=== PATIENT | female | born 1960 | race Caucasian/White ===

== ENCOUNTER 2019-09-13 15:38 | Outpatient (CLI) | payer MEDICARE, OTHER, SELFPAY ==
--- NOTE | ~2019-09-13 | XR_ITS ---
XR chest 2V 09/13/2019 16:14 Indication: Shortness of breath, cough and chest pain Procedure: 2 view chest Comparison: 10/20/2015 Findings: Heart size is normal. There is left basilar atelectasis/scarring. There are scattered calci fied granulomata. There is a bleb in the left perihilar region. No focal pneumonia, edema, pleural ef fusion or pneumothorax. Impression: 1: Left basilar atelectasis/scarring. Reviewed, dictated and finalized at location A. GE MANAGEMENT EXPERT Impression: 1: Left basilar atelectasis/scarring.
[2019-09-13 16:15] LABS: Influenza Control Valid (Valid)
[2019-09-13 16:40] LABS: Anion Gap 12.1 mmol/L (7-16); Blood Urea Nitrogen 11 mg/dL (7-18); Calcium 8.5 mg/dL (8.5-10.1); Carbon Dioxide 29 mmol/L (21-32); Chloride 103 mmol/L (98-108); Estimated Glomerular Filt Rate > 60; Glucose 98 mg/dL (70-99); Osmolality Calculated 289 mOsm/kg (285-295); Potassium 4.1 mmol/L (3.5-5.1); Sodium 140 mmol/L (136-145)
== END 2019-09-13 15:39 | disposition home or self-care (01) ==
LOC: CHSLAB 15:44
PROVIDERS: PCP Family Medicine; Visit Provider Family Medicine
DX: R05 Cough (principal)
CPT/HCPCS: 36415; 71046; 80048; 87804

== ENCOUNTER 2020-01-28 07:07 | Emergency (ER) | payer MEDICARE, OTHER, SELFPAY ==
[2020-01-28 07:15] VITALS: BP 162/87; PULSE 84; RESP 20; TEMP 36.7; O2SAT 98
--- NOTE | 2020-01-28 07:43 | ED.SKABFB ---
HPI - Skin/Abscess/Foreign Bdy General Chief complaint: Skin/Abscess/Foreign Body Stated complaint: fish hook stuck in L leg Time Seen by Provider: 01/28/20 07:43 Source: patient Mode of arrival: ambulatory Limitations: no limitations History of Present Illness HPI narrative: Patient is a 59-year-old female who was fishing today which hand got a hook imbedded in her left leg. Patient has no other complaints. complaint: foreign body Onset (ago): minute(s) Tetanus up to date: no Location: LLE Severity: mild Quality: foreign body sensation Related Data Allergies Allergy/AdvReac Type Severity Reaction Status Date / Time shellfish derived Allergy Unknown Verified 01/28/20 07:25 Review of Systems Review of Systems: All systems reviewed & are unremarkable except as noted in HPI and below PMFSH Family History Family History Mother Sepsis Social History Social History Smoking status: Never smoker Alcohol intake: never Substance use: never Exam Const: General: no acute distress and alert Nutritional Appearance: well nourished Orientation/consciousness: patient oriented x3 Skin: Other: A large fish hook in left lower extremity Neuro: General: patient oriented x3, moves all extremities and no focal motor deficits Extrem: General: normal to inspection Psych: Mental Status: mental status grossly normal Course Vital Signs Vital signs: Vital Signs Temperature 36.7 C 01/28/20 07:15 Pulse Rate 84 01/28/20 07:15 Respiratory Rate 01/28/20 07:15 Blood Pressure 162/87 H 01/28/20 07:15 Pulse Oximetry 98 01/28/20 07:15 Temperature 36.7 C 01/28/20 07:15 Pulse Rate 84 01/28/20 07:15 Respiratory Rate 01/28/20 07:15 Blood Pressure 162/87 H 01/28/20 07:15 Pulse Oximetry 98 01/28/20 07:15 Procedures Foreign Body Removal Foreign Body #1: Foreign Body Removal Date: 01/28/20 Foreign Body Removal Time: 07:38 Time Out Performed: yes Site: left and lower extremity Description of foreign body: fish hook Sedation/Analgesia: none ( 8 cc of lidocaine with epinephrine) Technique: manual removal Complications: none Post-procedure exam: awake, alert Neurovascular: normal distal pulse, distal light touch sensation intact, distal motor function normal and no signs of compartment syndrome Foreign Body Removal Narrative: area cleans with wound cleaning spray, lido with epi given, fish hook cut, pushed through skin, FB removed. discussed signs of infection. Critical Care Time Critical Care Time Critical Care Time: No Discharge Plan Discharge Clinical Impression: Foreign body (FB) in soft tissue Patient Disposition: Home, Self-Care Condition: Stable Instructions: Antibiotic Form, Soft Tissue Foreign Body (ED) Prescriptions: New cephalexin 500 mg capsule 500 mg PO Q8H Qty: 30 RF: 0 Follow-up/Referrals: Payam Mello MD [Primary Care Provider] - Time of Disposition: 07:46
[2020-01-28] MEDS: LIDO 1%/EPINEPHRINE 1:100,000 20 ML VIAL (07:45)
[2020-01-28] MEDS: NEOMYCIN/POLYMYXIN/BACITRACIN OINTMENT PACKET 1 PACKET (07:50)
[2020-01-28] MEDS: TETANUS,DIPHTHERIA,AC PERTUSSIS ADULT 0.5 ML (ADACEL) IM (07:53)
== END 2020-01-28 08:00 | disposition home or self-care (01) ==
PROVIDERS: Emergency Provider Emergency Medicine; PCP Family Medicine
DX: S81.842A Puncture wound with foreign body, left lower leg, initial encounter (principal); X58.XXXA Exposure to other specified factors, initial encounter
CPT/HCPCS: 90471; 90715; 99283

== ENCOUNTER 2020-04-25 06:45 | Emergency (ER) | payer MEDICARE, OTHER, SELFPAY ==
--- NOTE | ~2020-04-25 | CT_ITS ---
EXAMINATION: CT abdomen pelvis wo con DATE: 04/25/2020 08:09 INDICATION: Left flank pain for one day. Nausea. Urinary retention. TECHNIQUE: Computed tomography (CT) of the abdomen and pelvis was performed without intravenous contr ast. Automated exposure control and iterative reconstruction technique were employed. Exam dose: 113 5.09 mGy-cm total exam DLP. COMPARISON: 01/04/2015 CT abdomen FINDINGS: No infiltrate or consolidation is noted in the lower lung zones. There is mild discoid atel ectasis or scarring in the lingula. Normal heart size. No pericardial or pleural effusion. There is hepatic steatosis. No hepatic, splenic, pancreatic, adrenal or renal space-occupying mass le sandra is evident on this limited noncontrast examination. No bile duct or pancreatic duct dilatation. The gallbladder is unremarkable. There are calcified splenic granulomas. There is a chronic small sca r in the upper lateral aspect of the right kidney. No right urinary tract calculus or right-sided hyd roureteronephrosis. There is an approximately 3 mm nonobstructing lower pole left renal calculus. There is mild left hydr oureteronephrosis and mild left perinephric and periureteral stranding but no apparent urinary tract calculus. Differential diagnosis includes left pyelonephritis, recently passed stone or obstructing m ass of the left urinary tract. Consider further evaluation with IV contrast material CT examination. There is atherosclerotic calcification of the abdominal aorta but no aneurysm. No intraperitoneal or retroperitoneal or pelvic mass lesion or adenopathy or ascites. The uterus and adnexal areas are unre markable. There is limited evaluation of the urinary bladder due to evacuation of the bladder and abs ence of any contrast material. Diverticulosis of the sigmoid and descending colon; no CT evidence of diverticulitis. Normal appendix . No bowel obstruction, bowel wall thickening, pneumatosis or intraperitoneal free air. Small fat-containing umbilical hernia. Status post anterior spinal fusion at L5-S1. No suspicious osteolytic or osteoblastic lesions are noted. IMPRESSION: Mild left hydroureteronephrosis and mild left perinephric and periureteral stranding, wi thout identifiable obstructing stone; differential diagnosis includes recently passed stone, urinary tract infection or obstructing neoplasm. Consider CT abdomen pelvis with IV contrast material. 3 mm nonobstructing lower pole left renal calculus Hepatic steatosis Chronic small upper pole right renal scar Diverticulosis of the colon; no CT evidence of diverticulitis Reviewed, dictated and finalized at [facility]. Reviewed, dictated and finalized at location B. IMPRESSION: Mild left hydroureteronephrosis and mild left perinephric and melissa ureteral stranding, without identifiable obstructing stone; differential diagno sis includes recently passed stone, urinary tract infection or obstructing neop lasm. Consider CT abdomen pelvis with IV contrast material. 3 mm nonobstructing lower pole left renal calculus Hepatic steatosis Chronic small upper pole right renal scar Diverticulosis of the colon; no CT evidence of diverticulitis
[2020-04-25 06:45] VITALS: BP 151/73; PULSE 120; RESP 18; TEMP 37.4; O2SAT 98
[2020-04-25] MEDS: KETOROLAC 30 MG/ML VIAL (*BKC) IV PUSH (07:04)
[2020-04-25 07:19] LABS: Hematocrit 44.8 % (35.0-49.0); Hemoglobin 14.8 g/dL (12.0-15.0); Mean Corpuscular Hemoglobin 29.1 pg (27.0-31.0); Mean Platelet Volume 9.5 fl (9.2-11.8); Platelet Count Result 351 K/mm3 (150-420); Red Blood Count 5.09 M/mm3 (4.20-5.40); Red Cell Distribution Width 12.4 % (11.6-14.4); White Blood Count 16.4 K/mm3 (4.8-10.8)
[2020-04-25 07:20] LABS: Add Urine Microscopic? YES; Appearance Urine Clear (Clear); Bilirubin Urine 1+ (Negative); Blood Urine 3+ (Negative); Color Urine Yellow (Yellow); Glucose Urine UA Negative (Negative); Ketones Urine Trace (Negative); Leukocyte Esterase Ur Negative LEU/UL (Negative); Nitrate Urine Negative (Negative); Protein Urine 1+ (Negative); Specific Grav Ur >= 1.030 (1.010-1.020); Urobilinogen Urine 0.2 mg/dL (0.2-1.0)
[2020-04-25 07:29] LABS: Bacteria Urine 3+ /hpf; Mucus Urine Heavy /lpf; Squamous Epithelial Cell Urine Moderate /hpf (Few)
[2020-04-25 07:36] LABS: Alanine Aminotransferase 59 U/L (14-59); Albumin Level 3.8 g/dL (3.4-5.0); Alkaline Phosphatase 152 U/L (46-116); Anion Gap 11 mmol/L (8-16); Aspartate Amino Transferase 31 U/L (15-37); Bilirubin,Total 0.4 mg/dL (0.00-1.00); Blood Urea Nitrogen 11 mg/dL (7-18); Calcium 9.3 mg/dL (8.5-10.1); Carbon Dioxide 25 mmol/L (21-32); Chloride 102 mmol/L (98-108); Estimated Glomerular Filt Rate 47; Glucose 146 mg/dL (70-99); Osmolality Calculated 288 mOsm/kg (285-295); Potassium 3.9 mmol/L (3.5-5.1); Sodium 138 mmol/L (136-145); Total Protein 8.6 g/dL (6.4-8.2)
[2020-04-25] MEDS: MORPHINE SULFATE (*CRX) 4 MG/ML INJ IV PUSH (07:45)
--- NOTE | 2020-04-25 07:52 | ED.FEMALEGU ---
HPI - Female Genitourinary General Chief complaint: Urogenital-Female Stated complaint: possible female infection Source: patient Mode of arrival: ambulatory Limitations: no limitations History of Present Illness HPI Narrative: PT is a 59 year old female who presents with left sided flank pain. It started last night and this am was much worse. She has had kidney stones and UTI's in the past. She denies fevers or chills, but is in a lot of pain MD elicited complaint: dysuria, UTI , back pain and flank pain Pertinent past history: recurrent UTIs Onset (ago): hour(s) Location of symptoms: LLQ Severity: mild Female Urogenital Radiation: LLQ and L Flank Quality of pain: sharp Consistency: constant Urinary symptoms: Dysuria Exacerbating factors: none Relieving factors: urination Associated symptoms: abdominal pain, nausea and back pain Patient : No Related Data Home Medications Medication Instructions Recorded Confirmed amitriptyline 10 mg PO PRN PRN 04/25/20 04/25/20 Allergies Allergy/AdvReac Type Severity Reaction Status Date / Time shellfish derived Allergy Unknown Verified 01/28/20 07:25 Review of Systems Review of Systems: All systems reviewed & are unremarkable except as noted in HPI and below Gastrointestinal: Gastrointestinal: Reports abdominal pain and Reports nausea Genitourinary: Genitourinary: Reports nocturia, Reports dysuria and Reports flank pain PMFSH Past Medical History Medical History (Updated 04/25/20 @ 08:59 by Jonelle Fortune MD) HTN (hypertension) Surgical History Surgical History (Updated 04/25/20 @ 08:15 by Jonelle Fortune MD) H/O knee surgery History of back surgery Social History Social History Smoking status: Never smoker Alcohol intake: never Substance use: never Exam Const: General: healthy appearing, no acute distress (pt is having moderate discomfort) and alert Orientation/consciousness: patient oriented x3 HENMT: Head: normal to inspection Eyes: Conjunctivae: conjunctivae normal Pupils: Equal, round and reactive pupils present Neck: Neck: normal visual inspection Chest: Chest palpation & inspection: normal inspection of the chest Resp: Effort & Inspection: normal respiratory effort Auscultation: clear to auscultation bilaterally Cardio: Rate: regular rate Rhythm: regular rhythm GI: Inspection: distended GI Palp: Yes Soft to palpation Percussion: Yes normal to percussion Urinary Catheter: Urinary Catheter: patent and draining Back/Spine/Pelvis: Back: no CVA tenderness Skin: General skin exam: normal color Neuro: General: patient oriented x3 and moves all extremities Gait exam (Neuro): Normal gait present Extrem: General: normal to inspection Psych: Mental Status: mental status grossly normal Affect: normal affect Thought content: Yes Normal thought content present Judgement: Good judgement present (Psych) Course Vital Signs Vital signs: Vital Signs Temperature 37.4 C 04/25/20 06:45 Pulse Rate 120 H 04/25/20 06:45 Respiratory Rate 18 04/25/20 06:45 Blood Pressure 151/73 H 04/25/20 06:45 Pulse Oximetry 98 04/25/20 06:45 Temperature 37.4 C 04/25/20 06:45 Pulse Rate 115 H 04/25/20 11:55 Respiratory Rate 14 04/25/20 11:55 Blood Pressure 151/73 H 04/25/20 06:45 Pulse Oximetry 98 04/25/20 11:55 MDM - Female Genitourinary Differential Diagnosis Differential diagnosis: Likely urinary tract infection and other (stone) Lab Data Result diagrams: 04/25/20 07:14 04/25/20 07:14 Labs: Lab Results 04/25/20 04/25/20 04/25/20 Range/Units 07:14 07:14 07:14 WBC 16.4 H (4.8-10.8) K/mm3 RBC 5.09 (4.20-5.40) M/mm3 Hgb 14.8 (12.0-15.0) g/dL Hct 44.8 (35.0-49.0) % MCV 88.0 (78.0-102.0) fL MCH 29.1 (27.0-31.0) pg MCHC 33.0 (32.0-36.0) g/dL RDW 12.4 (11.6-14.4)
--- NOTE | 2020-04-25 08:36 | PC.NURSE ---
pt voided in commode, noted small stone within urine. shown to erp Dr delgadillo.
--- NOTE | 2020-04-25 08:37 | PC.NURSE ---
pt resting per cot, continues with pressure to pelvic region and left flank pain
--- NOTE | 2020-04-25 09:48 | PC.NURSE ---
pt contacted sign. other for transport home. awaiting arrival. pt resting per cot
--- NOTE | 2020-04-25 09:58 | PC.NURSE ---
lights out for comfort. pt resting per cot.
--- NOTE | 2020-04-25 10:39 | PC.NURSE ---
report to ayana zarate
--- NOTE | 2020-04-25 10:40 | PC.NURSE ---
pt resting eyes closed.
[2020-04-25] MEDS: HYDROcodone/acetaminophen (*CRX) 5-325 MG TABLET 2 TAB PO (11:45)
[2020-04-25 11:55] VITALS: PULSE 115; RESP 14; O2SAT 98
== END 2020-04-25 11:55 | disposition home or self-care (01) ==
PROVIDERS: Emergency Medicine; Emergency Provider Emergency Medicine; PCP Family Medicine
DX: N20.0 Calculus of kidney (principal); I10 Essential (primary) hypertension
CPT/HCPCS: 36415; 74176; 80053; 81001; 85027; 96374; 96375; 99283; 99284; A9270; J1885; J2270

== ENCOUNTER 2020-08-03 12:37 | Inpatient (IN) | payer MEDICARE, OTHER, SELFPAY ==
[2020-08-03] VITALS (15 sets, daily range): BP systolic 90–168; BP diastolic 59–111; PULSE 90–106; RESP 18–20; TEMP 36.4–37.6; O2SAT 93–99; BMI 36.5
--- NOTE | ~2020-08-03 | CT_ITS ---
EXAMINATION: CT abdomen pelvis wo con DATE: 08/03/2020 13:36 INDICATION: Epigastric abdominal pain, nausea and vomiting for 3 days TECHNIQUE: Computed tomography (CT) of the abdomen and pelvis was performed without intravenous contr ast. Automated exposure control and iterative reconstruction technique were employed. Exam dose: 120 3.12 mGy-cm total exam DLP. COMPARISON: 04/25/2020 CT abdomen pelvis FINDINGS: There are mild groundglass infiltrates and/atelectasis in the lower lung zones, primarily i nvolving the lower lobes and lingula. No pericardial or pleural effusion. Diffuse hepatic steatosis. No hepatic space-occupying mass lesion. The gallbladder appears unremarkab le. No bile duct or pancreatic duct dilatation. No pancreatic mass lesion or calcification. There are calcified splenic granulomas. No splenomegaly or splenic mass lesion. Normal morphology of the adrenal glands. There is an approximately 3 mm nonobstructing lower pole left renal calculus. No other urinary tract calculus or hydroureteronephrosis is evident. The uterus, adnexal areas and urinary bladder are unremarkable. Normal caliber of the abdominal aorta. No intraperitoneal or retroperitoneal or pelvic mass lesion or adenopathy or ascites. The uterus and adnexal areas are unremarkable. There are numerous diverticula of the left colon and to a minimal extent right colon. No CT evidence of diverticulitis. Normal appendix. No bowel obstruction, bowel wall thickening, pneumatosis or intraperitoneal free air is detected. Atherosclerotic calcification of the abdominal aorta but no aneurysm. No intraperitoneal or retroperi toneal or pelvic mass lesion or adenopathy or ascites. Small fat-containing umbilical hernia. Status post anterior and interbody spinal fusion at L5-S1. No suspicious osteolytic or osteoblastic lesions are noted. IMPRESSION: 3 mm lower pole nonobstructing left renal calculus Hepatic steatosis Diverticulosis of the colon; no CT evidence of diverticulitis Reviewed, dictated and finalized at [facility]. Reviewed, dictated and finalized at location B. RAL ACCOUNTANT
--- NOTE | ~2020-08-03 | CT_ITS ---
EXAMINATION: CT abdomen pelvis w con DATE: 08/04/2020 15:22 INDICATION: Epigastric abdominal pain. TECHNIQUE: Computed tomography (CT) of the abdomen and pelvis was performed with 100 mL Omnipaque 350 intravenous contrast. Automated exposure control and iterative reconstruction technique were employe d. The dose-length product was 1092.42 mGy-cm. COMPARISON: CT abdomen and pelvis 08/03/2020 FINDINGS: The visualized portions of the lung bases demonstrate mild atelectasis. No pleural effusion . The heart size is normal. No pericardial effusion. The liver and gallbladder are normal. Calcificat ions in the spleen are consistent with old granulomatous disease. The pancreas and adrenal glands are normal. There is a small area of volume loss of right kidney. There is a 3 mm stone in left kidney. There is diverticulosis of the colon without evidence of diverticulitis. There are no dilated loops o f bowel. The appendix is normal. There is an infraumbilical ventral hernia containing fat. There are no pathologically enlarged lymph nodes. There is no free intraperitoneal fluid. There is mild thoraco lumbar spondylosis. There are changes of anterior fusion procedure at L5-S1. IMPRESSION: 1. Infraumbilical ventral hernia containing fat. Reviewed, dictated and finalized at location A. ST MANAGER
--- NOTE | ~2020-08-03 | US_ITS ---
US abdomen limited INDICATION: Abdominal pain PROCEDURE: Realtime right upper abdominal ultrasound. COMPARISON: No prior studies for comparison. FINDINGS: The pancreas is normal without focal mass or pancreatic ductal dilation. Liver echotexture is increased, consistent with fatty infiltration. There is normal directional flow in the portal ve in. The gallbladder is normal without stones, gallbladder wall thickening or pericholecystic fluid. Comm on bile duct measures 5 mm. No sonographic Ward's sign. IMPRESSION: 1: Fatty infiltration of the liver. Reviewed, dictated and finalized at location A. N OILSEED OR PASTURE GROWER
[2020-08-03] MEDS: ONDANSETRON INJ 4 MG/2 ML VIAL IV PUSH ×2 (12:56→23:29)
[2020-08-03] MEDS: HYDROmorphone HCL INJ (*CRX) 2 MG/ML VIAL 0.5 MG IV PUSH (12:56)
[2020-08-03] MEDS: SODIUM CHLORIDE 0.9% IV 1,000 ML 999 ML IV CONT (12:56)
--- NOTE | 2020-08-03 12:56 | ECG_ITS ---
Measurements Intervals [place] Rate: 82 P: 64 CO: 162 QRS: 74 QRSD: 100 T: 73 QT: 378 QTc: 442 Interpretive Statements SINUS RHYTHM EARLY PRECORDIAL R/S TRANSITION BORDERLINE ECG Electronically Signed On 08-03-2020 13:57:37 PIGMENT MIXER by Malachi Hidalgo D.O.
[2020-08-03 13:28] LABS: Basophils Absolute Auto 0.02 K/mm3 (0.00-0.10); Basophils Percent Auto 0.2 % (0.0-1.0); Hematocrit 42.7 % (35.0-49.0); Hemoglobin 14.4 g/dL (12.0-15.0); Immature Granulocyte Absolute 0.09 K/mm3 (0.00-0.00); Immature Granulocyte Percent A 0.9 % (0.0-0.0); Lymphocytes Percent Auto 7.9 % (18.0-42.0); Mean Corpuscular HGB Conc 33.7 g/dL (32.0-36.0); Mean Corpuscular Hemoglobin 28.9 pg (27.0-31.0); Mean Corpuscular Volume 85.6 fL (78.0-102.0); Mean Platelet Volume 9.4 fl (9.2-11.8); Monocytes Absolute Auto 0.31 K/mm3 (0.10-0.90); Monocytes Percent Auto 3.1 % (2.0-11.0); Neutrophils Absolute Auto 8.9 K/mm3 (1.7-7.2); Neutrophils Percent Auto 87.9 % (50.0-70.0); Platelet Count Result 337 K/mm3 (150-420); Red Blood Count 4.99 M/mm3 (4.20-5.40); Red Cell Distribution Width 12.5 % (11.6-14.4); White Blood Count 10.1 K/mm3 (4.8-10.8)
[2020-08-03] MEDS: KETOROLAC 30 MG/ML VIAL (*BKC) IV PUSH (13:49)
[2020-08-03 13:56] LABS: Alanine Aminotransferase 54 U/L (14-59); Alkaline Phosphatase 138 U/L (46-116); Anion Gap 10 mmol/L (8-16); Aspartate Amino Transferase 23 U/L (15-37); Bilirubin,Total 0.5 mg/dL (0.00-1.00); Blood Urea Nitrogen 14 mg/dL (7-18); Calcium 9.4 mg/dL (8.5-10.1); Carbon Dioxide 27 mmol/L (21-32); Chloride 101 mmol/L (98-108); Estimated CRCL calculation 57 ml/min; Estimated Glomerular Filt Rate > 60; Glucose 153 mg/dL (70-99); Lipase 57 U/L (73-393); Osmolality Calculated 289 mOsm/kg (285-295); Potassium 3.5 mmol/L (3.5-5.1); Sodium 138 mmol/L (136-145); Total Protein 8.7 g/dL (6.4-8.2); Troponin I 7.2 ng/L (0.00-60.4)
--- NOTE | 2020-08-03 14:21 | ED.NAVMDI ---
HPI - Nausea/Vomiting/Diarrhea General Chief complaint: Nausea/Vomiting/Diarrhea Stated complaint: vomiting for several days Source: patient Mode of arrival: ambulatory History of Present Illness HPI Narrative: This is a 60-year-old female with a history of kidney stones presents with abdominal pain and left flank pain, started earlier today with nausea and vomiting with no dysuria no hematuria currently no fever chills. The patient has a history of kidney stones was diagnosed and treated back in March 2020. Currently there is no chest pain no shortness of breath. MD elicited complaint: nausea, vomiting, abdominal pain and flank pain Onset (ago): hour(s) Description of vomiting: watery Associated nausea: Yes Associated abdominal pain: Yes Location of pain: L flank Severity: severe Pain scale (0-10): 8 Quality: aching and dull Related Data Home Medications Medication Instructions Recorded Confirmed amitriptyline 20 mg PO HS 04/25/20 08/03/20 Allergies Allergy/AdvReac Type Severity Reaction Status Date / Time shellfish derived Allergy Unknown Verified 01/28/20 07:25 Review of Systems Review of Systems: All systems reviewed & are unremarkable except as noted in HPI and below PMFSH Past Medical History Medical History (Updated 08/03/20 @ 14:33 by Sandro Layne MD) HTN (hypertension) Kidney stone Surgical History Surgical History H/O knee surgery History of back surgery Family History Family History Mother Sepsis Social History Social History Smoking status: Never smoker Alcohol intake: never Substance use: never Exam Const: General: no acute distress and alert Orientation/consciousness: patient oriented x3 HENMT: Head: normal to inspection Eyes: Pupils: Equal, round and reactive pupils present Neck: Neck: normal visual inspection, no lymphadenopathy and no meningeal signs Chest: Chest palpation & inspection: normal inspection of the chest Resp: Effort & Inspection: normal respiratory effort Auscultation: clear to auscultation bilaterally Cardio: Rate: regular rate Rhythm: regular rhythm GI: GI Palp: Yes Soft to palpation and Yes Tenderness to palpation present (GI) : General: Yes CVA tenderness ( Left flank) Urinary Catheter: Urinary Catheter: patent and draining Back/Spine/Pelvis: Back: CVA tenderness Skin: General skin exam: normal color Rashes: no rashes Neuro: General: patient oriented x3, moves all extremities and no meningeal signs Extrem: General: normal to inspection and no pedal edema Psych: Appearance: grossly normal Mental Status: mental status grossly normal Affect: normal affect Thought content: Yes Normal thought content present Course Course Emergency Course: patient's pain level has improved with Dilaudid but continued to have pain and administered IV Toradol which did help her pain considerably more. Patient was also given Zofran and nausea and vomiting has improved. I explained that CT scan showed a 3mm stone at the lower pole. And to follow-up with her primary care physician and take medicine as prescribed. All the patient is having less flank pain but after the nausea vomiting is having epigastric discomfort. Vital Signs Vital signs: Vital Signs Temperature 36.7 C 08/03/20 12:37 Pulse Rate 94 08/03/20 12:37 Respiratory Rate 20 08/03/20 12:37 Blood Pressure 156/111 H 08/03/20 12:37 Pulse Oximetry 98 08/03/20 12:37 Temperature 36.7 C 08/03/20 12:37 Pulse Rate 94 08/03/20 12:37 Respiratory Rate 20 08/03/20 12:37 Blood Pressure 156/111 H 08/03/20 12:37 Pulse Oximetry 98 08/03/20 12:37 MDM - Nausea/Vomiting/Diarrhea Lab Data Result diagrams: 08/03/20 13:22 08/03/20 13:22 Labs: Lab Results 0
--- NOTE | 2020-08-03 14:36 | PC.NURSE ---
RN CONTACTED CHARGE NURSE LUCERO TO REQUEST OBSERVATION BED. ROOM 204 PROVIDED. REGISTRATION NOTIFIED.
[2020-08-03] MEDS: PANTOPRAZOLE SODIUM IV 40 MG VIAL IV PUSH (14:43)
[2020-08-03 15:14] LABS: Add Urine Microscopic? YES; Appearance Urine Clear (Clear); Bacteria Urine 4+ /hpf; Bilirubin Urine 1+ (Negative); Blood Urine Trace-Intact (Negative); Color Urine Yellow (Yellow); Glucose Urine UA Negative (Negative); Ketones Urine 1+ (Negative); Leukocyte Esterase Ur 1+ LEU/UL (Negative); Nitrate Urine Negative (Negative); Protein Urine 2+ (Negative); RBC Urine 0-2 /hpf (0-2); Specific Grav Ur >= 1.030 (1.010-1.020); Squamous Epithelial Cell Urine Many /hpf (Few); pH Urine 5.5 (5.0-8.0)
[2020-08-03] MEDS: PANTOPRAZOLE SODIUM IV 40 MG VIAL (17:07)
[2020-08-03] MEDS: MORPHINE SULFATE (*CRX) 2 MG/ML INJ IV PUSH ×2 (17:07→21:17)
[2020-08-03] MEDS: SODIUM CHLORIDE 0.9% IV 1,000 ML 100 ML IV CONT (17:09)
--- NOTE | 2020-08-03 17:21 | PC.NURSE ---
pt requests benadryl for itching, states morphine makes her itch but she wants it for pain anyway, charge nurse to call for order
--- NOTE | 2020-08-03 17:22 | ADMGEN ---
This patient, Belinda Hawkins, was admitted to 2nd Floor Room 204-1. Patient/family oriented to hospital policies and general routines including ID bracelet, bed and alarms, visiting hours, pain management, procedures, bathroom and other care routines, personal items, smoking policy, clear liquid diet, and no visitor policy. Pt has purse in room, phone, concrete products machine operator, belongings bag. Pt wishes to keep everything in the room with her. Pt requests more pain medicine but is unable to have any at this time. Given emesis bags and glass of water Information on how to activate the Rapid Response Team has been discussed. Patient/Family are encouraged to report perceived risks to care and to ask questions if they do not understand what they are told or what they should do.
[2020-08-03] MEDS: diphenhydrAMINE HCl INJ 50 MG/ML VIAL 25 MG IV PUSH (20:40)
[2020-08-04] VITALS (7 sets, daily range): BP systolic 103–178; BP diastolic 50–89; PULSE 64–91; RESP 18–20; TEMP 36.6–37.7; O2SAT 93–100
[2020-08-04] MEDS: MORPHINE SULFATE (*CRX) 2 MG/ML INJ IV PUSH ×4 (01:40→14:52)
[2020-08-04] MEDS: SODIUM CHLORIDE 0.9% IV 1,000 ML 100 ML IV CONT ×2 (02:28→13:01)
--- NOTE | 2020-08-04 05:05 | PC.NURSE ---
Patient appears to be anxious and easily upset. Became panicked when IV dislodged and when subsequent bandalid becme dislodged. No episodes of nausea or emesis. requests pain medication frequently for epigastric pain. No c/o flank pain or lower abdominal pain. IV benedryl given for c/o of itching.
[2020-08-04] MEDS: diphenhydrAMINE HCl INJ 50 MG/ML VIAL 25 MG IV PUSH ×2 (05:40→09:42)
[2020-08-04 05:45] LABS: Basophils Absolute Auto 0.03 K/mm3 (0.00-0.10); Basophils Percent Auto 0.3 % (0.0-1.0); Eosinophils Absolute Auto 0.01 K/mm3 (0.02-0.50); Eosinophils Percent Auto 0.1 % (1.0-6.0); Hematocrit 37.4 % (35.0-49.0); Hemoglobin 12.2 g/dL (12.0-15.0); Immature Granulocyte Absolute 0.04 K/mm3 (0.00-0.00); Immature Granulocyte Percent A 0.5 % (0.0-0.0); Lymphocytes Absolute Auto 1.49 K/mm3 (1.10-4.50); Lymphocytes Percent Auto 17.4 % (18.0-42.0); Mean Corpuscular HGB Conc 32.6 g/dL (32.0-36.0); Mean Corpuscular Hemoglobin 28.4 pg (27.0-31.0); Mean Platelet Volume 9.3 fl (9.2-11.8); Monocytes Absolute Auto 0.54 K/mm3 (0.10-0.90); Monocytes Percent Auto 6.3 % (2.0-11.0); Neutrophils Absolute Auto 6.5 K/mm3 (1.7-7.2); Neutrophils Percent Auto 75.4 % (50.0-70.0); Platelet Count Result 303 K/mm3 (150-420); Red Cell Distribution Width 12.7 % (11.6-14.4); White Blood Count 8.6 K/mm3 (4.8-10.8)
[2020-08-04 06:01] LABS: Alanine Aminotransferase 42 U/L (14-59); Albumin Level 3.3 g/dL (3.4-5.0); Alkaline Phosphatase 111 U/L (46-116); Anion Gap 9 mmol/L (8-16); Aspartate Amino Transferase 17 U/L (15-37); Bilirubin,Total 0.4 mg/dL (0.00-1.00); Blood Urea Nitrogen 12 mg/dL (7-18); Calcium 8.5 mg/dL (8.5-10.1); Carbon Dioxide 26 mmol/L (21-32); Chloride 105 mmol/L (98-108); Estimated CRCL calculation 67 ml/min; Estimated Glomerular Filt Rate > 60; Glucose 95 mg/dL (70-99); Osmolality Calculated 289 mOsm/kg (285-295); Potassium 3.6 mmol/L (3.5-5.1); Sodium 140 mmol/L (136-145); Total Protein 6.6 g/dL (6.4-8.2)
[2020-08-04] MEDS: ONDANSETRON INJ 4 MG/2 ML VIAL IV PUSH ×2 (06:01→11:24)
[2020-08-04] MEDS: oxyCODONE HCL (*CRX) 10 MG TAB SR 12HR PO (09:43)
--- NOTE | 2020-08-04 13:02 | PC.NURSE ---
Patient moved from 204 to 211. Covid test
--- NOTE | 2020-08-04 13:20 | PM.IMHP ---
H&P: HPI History of Present Illness Date/Time: 08/04/20 13:20 <AMAURI Amaya - Last Filed: 08/04/20 13:57> Chief Complaint: abdominal pain, N/V <AMAURI Amaya - Last Filed: 08/04/20 13:57> Narrative: Belinda Hawkins is a 60 year old female presenting with epigastric and left flank pain that started approximately 2-3 days ago. At that time she also had nausea and vomiting. While on the floor patient has been free from vomiting though still nauseated. Patient states her pain is a 9 or 10/10. Pain has been difficult to control even after receiving Dilaudid, Toradol, morphine, Benadryl, 10 mg sustained release oxycodone at different time intervals. Patient has a past history of kidney stones. Today patient informed the nurse that when she was at an outside hospital she was there for a month with the same pains and ended up being a kidney infection. Abdominal pelvis CT shows 3 mm left lower pole nonobstructing stone, hepatic steatosis, and diverticulosis without diverticulitis. <AMAURI Amaya - Last Filed: 08/04/20 13:57> Review of Systems Constitutional: Constitutional: Reports no additional constitutional complaints, Denies fever(s) and Reports poor appetite <AMAURI Amaya - Last Filed: 08/04/20 13:57> Cardiovascular: Cardiovascular: Reports no additional cardiovascular complaints, Denies chest pain, Denies chest pain at rest and Denies chest pain with activity <AMAURI Amaya - Last Filed: 08/04/20 13:57> Respiratory: Respiratory: Reports no additional respiratory complaints, Denies dyspnea and Denies dyspnea on exertion <AMAURI Amaya - Last Filed: 08/04/20 13:57> Gastrointestinal: Gastrointestinal: Reports no additional gastrointestinal complaints, Reports abdominal pain (generalized) and Reports diarrhea (patient states she is having diarrhea once) <AMAURI Amaya - Last Filed: 08/04/20 13:57> Genitourinary: Genitourinary: Reports no additional female genitourinary complaints <AMAURI Amaya - Last Filed: 08/04/20 13:57> [facility] Past Medical History Medical History: Medical History HTN (hypertension) Kidney stone <AMAURI Amaya - Last Filed: 08/04/20 13:57> Surgical History Surgical History: Surgical History H/O knee surgery History of back surgery <AMAURI Amaya - Last Filed: 08/04/20 13:57> Family History Family History: Family History Mother Sepsis <AMAURI Amaya - Last Filed: 08/04/20 13:57> Social History Social History: Social History Smoking status: Former smoker Second hand tobacco smoke exposure: Yes Alcohol intake: never Substance use: never Substance use type: does not use Spiritual care concerns: No <AMAURI Amaya - Last Filed: 08/04/20 13:57> Meds Home Medications and Allergies Home medications: Home Medications Medication Instructions Recorded Confirmed Type amitriptyline 20 mg PO HS 04/25/20 08/03/20 History ondansetron HCl [Zofran] 4 mg PO Q6H PRN #10 tablet 08/03/20 Rx tramadol [Ultram] 50 mg PO Q6H PRN #20 tablet 08/03/20 Rx <AMAURI Amaya - Last Filed: 08/04/20 13:57> Allergies/Adverse reactions: Allergies Allergy/AdvReac Type Severity Reaction Status Date / Time shellfish derived Allergy Unknown Verified 01/28/20 07:25 <AMAURI Amaya - Last Filed: 08/04/20 13:57> Vital Signs Vital Signs - 24 hr 08/03/20 13:39 08/03/20 13:45 08/03/20 13:52 Temperature Pulse Rate Respiratory Rate Blood Pressure 152/101 H Pulse Oximetry 97 93 94 08/03/20 14:00 08/03/20 14:15 08/03/20 14:30 Temperature Pulse Rate Respiratory Rate Blood Pr
[2020-08-04] MEDS: PANTOPRAZOLE SODIUM IV 40 MG VIAL IV PUSH (13:37)
--- NOTE | 2020-08-04 13:46 | PC.NURSE ---
Patient receiving ultrasound at this time
--- NOTE | 2020-08-04 15:01 | PC.NURSE ---
Patient transported off of floor, via wheelchair for CT
--- NOTE | 2020-08-04 15:15 | PC.NURSE ---
Patient transported back to floor via wheelchair by xray
--- NOTE | 2020-08-04 17:23 | PC.NURSE ---
clear liquid diet tray provided. pt able to feed self. and reposition self in bed. no complaints voiced at this time
--- NOTE | 2020-08-04 18:13 | PC.NURSE ---
pt resting per bed with lights off, no complaints voiced at this time.
--- NOTE | 2020-08-04 19:11 | PC.NURSE ---
report to ayana weldon
[2020-08-04] MEDS: AMITRIPTYLINE HCL 10 MG TABLET 20 MG PO (20:21)
[2020-08-04 20:55] LABS: SARS-CoV-2 Ag Negative (Negative)
[2020-08-04] MEDS: ACETAMINOPHEN 500 MG TABLET 1000 MG PO (22:33)
[2020-08-04] MEDS: DICYCLOMINE HCL 10 MG CAPSULE 20 MG PO (22:33)
--- NOTE | 2020-08-04 22:48 | PM.EVENT ---
Event Note Event Note Event Note: PTs us and ct reviewed today and no etiology noted for pain. On exam this am pain inconcistant in location- at epigastic region and suprapublic and llq. Fo fevers, no vomiting, no diarrhea. tolerating PO's well. Will stop narcotic pain meds and transition to non-narcotic alternatives. Discussed with pt on the phone that narcotics are dangerous and need to be used sparingly. tylenol and bentyl ordered. pt complaining that her back hurts from laying in bed and mentioned other chronic arthropathies. will order ativan for anxiety, and another UTI as pt believes that this is what is causing the pain. will offer tylenol, bentyl and toradol for pain control.
[2020-08-04] MEDS: LORazepam INJ (*CRX) 2 MG/ML VIAL 1 MG IV PUSH (23:12)
[2020-08-04 23:43] LABS: Appearance Urine Clear (Clear); Bilirubin Urine Negative (Negative); Color Urine Yellow (Yellow); Glucose Urine UA Negative (Negative); Ketones Urine Negative (Negative); Leukocyte Esterase Ur Trace (Negative); Nitrate Urine Negative (Negative); Protein Urine Negative (Negative); Urobilinogen Urine 0.2 mg/dL (0.2-1.0); pH Urine 6.5 (5.0-8.0)
[2020-08-04 23:48] LABS: Add Urine Microscopic? YES; Blood Urine Trace-Intact (Negative)
[2020-08-04 23:49] LABS: Bacteria Urine None seen /hpf; Squamous Epithelial Cell Urine Occasional /hpf (Few)
[2020-08-05] MEDS: SODIUM CHLORIDE 0.9% IV 1,000 ML 100 ML IV CONT ×2 (02:56→13:00)
[2020-08-05 04:00] VITALS: BP 169/87; PULSE 91; RESP 18; TEMP 36.8; O2SAT 95
[2020-08-05] MEDS: KETOROLAC 15 MG/ML VIAL (*BKC) IV PUSH ×3 (04:21→21:30)
[2020-08-05 06:07] LABS: Hematocrit 38.2 % (35.0-49.0); Hemoglobin 12.6 g/dL (12.0-15.0); Mean Corpuscular Hemoglobin 28.6 pg (27.0-31.0); Mean Corpuscular Volume 86.6 fL (78.0-102.0); Mean Platelet Volume 9.6 fl (9.2-11.8); Platelet Count Result 291 K/mm3 (150-420); Red Blood Count 4.41 M/mm3 (4.20-5.40); Red Cell Distribution Width 12.4 % (11.6-14.4); White Blood Count 6.8 K/mm3 (4.8-10.8)
[2020-08-05 06:17] LABS: Anion Gap 11 mmol/L (8-16); Blood Urea Nitrogen 6 mg/dL (7-18); Calcium 8.6 mg/dL (8.5-10.1); Carbon Dioxide 26 mmol/L (21-32); Chloride 105 mmol/L (98-108); Estimated CRCL calculation 76 ml/min; Estimated Glomerular Filt Rate > 60; Glucose 87 mg/dL (70-99); Osmolality Calculated 290 mOsm/kg (285-295); Potassium 3.6 mmol/L (3.5-5.1); Sodium 142 mmol/L (136-145)
[2020-08-05 08:00] VITALS: BP 132/84; PULSE 96; RESP 18; TEMP 37.2; O2SAT 96
[2020-08-05] MEDS: DICYCLOMINE HCL 10 MG CAPSULE 20 MG PO ×2 (09:13→17:38)
[2020-08-05] MEDS: ACETAMINOPHEN 500 MG TABLET 1000 MG PO ×2 (09:13→17:38)
[2020-08-05 12:00] VITALS: BP 153/95; PULSE 82; RESP 18; TEMP 37.2; O2SAT 93
[2020-08-05] MEDS: SUCRALFATE SUSP 100 MG/ML 10 ML UDC 1000 MG PO ×3 (12:43→21:29)
[2020-08-05] MEDS: MAG HYDROX/ALUMINUM HYD/SIMETH 30 ML, PHENobarb/HYOSCY/ATROPINE/SCOP 32.4 MG, LIDOCAINE... PO (12:44)
[2020-08-05] MEDS: CYCLOBENZAPRINE HCL 10 MG TABLET PO ×2 (13:10→21:30)
[2020-08-05] MEDS: PANTOPRAZOLE SODIUM IV 40 MG VIAL IV PUSH (13:10)
--- NOTE | 2020-08-05 13:23 | PM.IMPN ---
Progress Note: A&P Assessment and Plan (1) Abdominal pain: Qualifiers: Abdominal location: epigastric Qualified Code(s): R10.13 - Epigastric pain Code(s): R10.9 - Unspecified abdominal pain Status: Acute Assessment and Plan: 08/04/2020 currently attempting pain management with morphine and sustained release oxycodone, CT of the abdomen showed diverticulosis without diverticulitis, 3 mm nonobstructing left kidney, hepatic steatosis, obtaining ultrasound right upper quadrant, ultrasound firs nondiagnostic will run a CT with contrast of the abdomen and pelvis 08/05/2020 patient was given a GI cocktail this afternoon as a 1 time dose and Carafate as well, will see how this does for the patient along with other anti emetics, patient may benefit from endoscopy (2) Kidney stone: Code(s): N20.0 - Calculus of kidney Status: Acute Assessment and Plan: 08/04/2020 3 mm stone left lower pole nonobstructing, pain management as noted above 08/05/2020 patient continues his left-sided back pain however she admits this is a chronic issue (3) Nausea and vomiting: Qualifiers: Vomiting Intractability: non-intractable Vomiting type: unspecified Qualified Code(s): R11.2 - Nausea with vomiting, unspecified Code(s): R11.2 - Nausea with vomiting, unspecified Status: Acute Assessment and Plan: 08/04/2020 Zofran, PPI, will monitor and may need to change medications depending on how patient responds 08/05/2020 will change Zofran over to Compazine to see if this works better (4) Person under investigation for COVID-19: Code(s): Z20.822 - Contact with and (suspected) exposure to COVID-19 Status: Acute Assessment and Plan: 08/04/2020 patient presents with nausea vomiting and abdominal pain for past 2-3 days, results pending 08/05/2020 results still pending at this time, continue with precautionary isolation (5) UTI (urinary tract infection): Code(s): N39.0 - Urinary tract infection, site not specified Status: Acute Assessment and Plan: 08/04/2020 urine culture pending, patient is currently on Rocephin and normal saline at 100 mL/h 08/05/2020 urine culture results as mixed es indicating possible contamination however will continue with Rocephin at this time Subjective Date/time seen: 08/05/20 13:23 Entered into patient's room this morning to see she was resting comfortably in bed. Asked patient how she was doing and she indicated she had vomited this morning and her emesis bag was filled with approximately 100-200 mL of emesis with a bile color. Patient states that her back hurts and laying in the hospital bed is very difficult due to her back pain. Flexeril was ordered for this and may supplement with lidocaine patch in the future as needed. Patient was given lorazepam yesterday evening which helps her to sleep and did help her with her nausea. During rounds was explained to the patient the goal is to get her free from vomiting and to hold in fluids so that we can discharge her home. Also discussed with patient follow-up with GI for possible endoscopy. Review of Systems Constitutional: Constitutional: Reports no additional constitutional complaints Cardiovascular: Cardiovascular: Reports no additional cardiovascular complaints, Denies chest pain, Denies chest pain at rest and Denies chest pain with activity Respiratory: Respiratory: Reports no additional respiratory complaints, Denies dyspnea and Denies dyspnea on exertion Gastrointestinal: Gastrointestinal: Reports no additional gastrointestinal complaints, Reports nausea, Reports vomiting and Reports other (Epigastric pain) Musculoskeletal: Musculoskeletal: Reports other (left-sided back pain) Exam Const: General: cooperative, no acute distress, alert, awake and Physically active Nutritional Appearance: overweight Resp: Effort & Inspection: normal respiratory effort Auscultation: clear to auscult
[2020-08-05 16:00] VITALS: BP 161/101; PULSE 88; RESP 18; TEMP 37.2; O2SAT 96
[2020-08-05 18:54] LABS: Occult Blood Negative (Negative)
[2020-08-05 19:31] LABS: SARS-CoV-2 RNA PCR Negative
[2020-08-05 20:00] VITALS: BP 161/84; PULSE 80; RESP 18; TEMP 36.3; O2SAT 96
[2020-08-05] MEDS: AMITRIPTYLINE HCL 10 MG TABLET 20 MG PO (22:00)
[2020-08-05 22:12] VITALS: TEMP 36.3
[2020-08-06] VITALS: BP 146/81; PULSE 80; RESP 18; TEMP 36.2; O2SAT 94
[2020-08-06] MEDS: SODIUM CHLORIDE 0.9% IV 1,000 ML 100 ML IV CONT ×2 (00:34→09:33)
[2020-08-06 00:49] VITALS: TEMP 36.2
[2020-08-06] MEDS: ACETAMINOPHEN 500 MG TABLET 1000 MG PO ×2 (00:49→09:27)
[2020-08-06] MEDS: PROCHLORPERAZINE EDISYLATE 10 MG/2 ML VIAL IV PUSH (01:07)
[2020-08-06] MEDS: KETOROLAC 15 MG/ML VIAL (*BKC) IV PUSH ×2 (03:40→09:34)
[2020-08-06 03:47] VITALS: TEMP 36.7
[2020-08-06 04:00] VITALS: BP 155/83; PULSE 68; RESP 18; TEMP 36.7; O2SAT 96
[2020-08-06] MEDS: CYCLOBENZAPRINE HCL 10 MG TABLET PO (05:56)
[2020-08-06] MEDS: SUCRALFATE SUSP 100 MG/ML 10 ML UDC 1000 MG PO (05:58)
[2020-08-06 08:00] VITALS: BP 167/95; PULSE 78; RESP 20; TEMP 37.6; O2SAT 98
[2020-08-06] MEDS: DICYCLOMINE HCL 10 MG CAPSULE 20 MG PO (09:26)
--- NOTE | 2020-08-06 10:59 | PM.DS ---
DS: Admitting Diagnosis Admitting Diagnosis Admitting Diagnosis: abdominal pain and dehydration DS: Discharge Diagnosis Discharge Diagnosis (1) Abdominal pain: Qualifiers: Abdominal location: epigastric Qualified Code(s): R10.13 - Epigastric pain Code(s): R10.9 - Unspecified abdominal pain Status: Acute Assessment and Plan: 08/04/2020 currently attempting pain management with morphine and sustained release oxycodone, CT of the abdomen showed diverticulosis without diverticulitis, 3 mm nonobstructing left kidney, hepatic steatosis, obtaining ultrasound right upper quadrant, ultrasound firs nondiagnostic will run a CT with contrast of the abdomen and pelvis 08/05/2020 patient was given a GI cocktail this afternoon as a 1 time dose and Carafate as well, will see how this does for the patient along with other anti emetics, patient may benefit from endoscopy 08/06/2020 Patient states the GI cocktail did help her little bit yesterday however in the middle night she had 1 episode of some nausea for which nurse did give her Compazine and from that point till this morning she has been doing fine, she has been able to keep her p.o. fluids down and the abdominal pain has improved (2) Kidney stone: Code(s): N20.0 - Calculus of kidney Status: Acute Assessment and Plan: 08/04/2020 3 mm stone left lower pole nonobstructing, pain management as noted above 08/05/2020 patient continues his left-sided back pain however she admits this is a chronic issue 08/06/2020 stone is small likely will pass on its own with minimal issues (3) Nausea and vomiting: Qualifiers: Vomiting Intractability: non-intractable Vomiting type: unspecified Qualified Code(s): R11.2 - Nausea with vomiting, unspecified Code(s): R11.2 - Nausea with vomiting, unspecified Status: Acute Assessment and Plan: 08/04/2020 Zofran, PPI, will monitor and may need to change medications depending on how patient responds 08/05/2020 will change Zofran over to Compazine to see if this works better 08/06/2020 nausea has been better controlled with the Compazine (4) Person under investigation for COVID-19: Code(s): Z20.822 - Contact with and (suspected) exposure to COVID-19 Status: Acute Assessment and Plan: 08/04/2020 patient presents with nausea vomiting and abdominal pain for past 2-3 days, results pending 08/05/2020 results still pending at this time, continue with precautionary isolation 08/06/2020 COVID returned back negative (5) UTI (urinary tract infection): Code(s): N39.0 - Urinary tract infection, site not specified Status: Acute Assessment and Plan: 08/04/2020 urine culture pending, patient is currently on Rocephin and normal saline at 100 mL/h 08/05/2020 urine culture results as mixed es indicating possible contamination however will continue with Rocephin at this time 08/06/2020 patient had been treated with Rocephin for 3 day course DS: Summary Hospital Course Hospital Course: patient's nausea and vomiting have resolved as of this morning will be sending patient home with PPI Carafate Bentyl and Flexeril Time Spent with Patient Time attestation: Total time spent providing and/or coordinating discharge services: < 30 Minute Exam Const: General: cooperative, comfortable, no acute distress, alert, awake and Physically active Nutritional Appearance: obese Resp: Effort & Inspection: normal respiratory effort Auscultation: clear to auscultation bilaterally Cardio: Rate: regular rate Heart sounds: S1 normal heart sound present and S2 normal heart sound present GI: GI Palp: Yes Soft to palpation, Yes Tenderness to palpation present (GI) (minimal tenderness), No Guarding due to palpation present (GI), No Pulsatile mass present and No Rebound tenderness present Auscultation: normal bowel sounds Extrem: General: no pedal edema DS: Data Data Completed and Pending Labs on day of d
[2020-08-06 12:00] VITALS: BP 148/72; PULSE 80; RESP 20; TEMP 37.2; O2SAT 98
--- NOTE | 2020-08-07 10:11 | PC.NURSE ---
Pt states she received and understood her discharge instructions. Pt complained of not receiving pain medication and she felt care givers were rude to her.
== END 2020-08-06 13:30 | disposition home or self-care (01) | DRG 392 ==
LOC: CHSED 14:35 → CHS2ND 08-04 07:21
PROVIDERS: Emergency Medicine; Nurse Practitioner Family; Admitting Provider Emergency Medicine; Emergency Provider Emergency Medicine; PCP Family Medicine; Visit Provider Emergency Medicine
DX: R11.2 Nausea with vomiting, unspecified (principal); N39.0 Urinary tract infection, site not specified; N20.0 Calculus of kidney; R10.13 Epigastric pain; I10 Essential (primary) hypertension; Z20.828 Contact with and (suspected) exposure to other viral communicable diseases
CPT/HCPCS: 36415; 74176; 74177; 76705; 80048; 80053; 81001; 82272; 83605; 83690; 83735; 84484; 85025; 85027; 87086; 87088; 87324; 87426; 93005; 96361; 96365; 96374; 96375; 96376; 99285; A9270; C9113; C9803; G0378; J0696; J0780; J1170; J1200; J1885; J2060; J2270; J2405; J7030; Q9965; Q9967; U0003

== ENCOUNTER 2020-08-18 11:26 | Outpatient (CLI) | payer MEDICARE, OTHER, SELFPAY ==
--- NOTE | ~2020-08-18 | XR_ITS ---
EXAMINATION: XR chest 2V DATE: 08/18/2020 16:15 INDICATION: Posterior chest pain and shortness of breath TECHNIQUE: PA and lateral views of the chest are obtained. COMPARISON: 09/13/2019 FINDINGS: The lungs are free of acute opacities. There is no pleural effusion or pneumothorax. Calcif ied pulmonary nodules and calcified mediastinal and bilateral hilar lymph nodes are consistent with o ld granulomatous disease. The cardiomediastinal silhouette is normal. There is moderate thoracic spo ndylosis. IMPRESSION: 1. No acute cardiopulmonary abnormality. Reviewed, dictated and finalized at location A. L DIGGER
[2020-08-18 12:01] LABS: SARS-CoV-2 Ag Negative (Negative)
[2020-08-18 16:28] LABS: Basophils Absolute Auto 0.04 K/mm3 (0.00-0.10); Basophils Percent Auto 0.4 % (0.0-1.0); Eosinophils Absolute Auto 0.23 K/mm3 (0.02-0.50); Eosinophils Percent Auto 2.2 % (1.0-6.0); Hematocrit 38.2 % (35.0-49.0); Hemoglobin 12.7 g/dL (12.0-15.0); Immature Granulocyte Absolute 0.03 K/mm3 (0.00-0.00); Immature Granulocyte Percent A 0.3 % (0.0-0.0); Lymphocytes Absolute Auto 1.41 K/mm3 (1.10-4.50); Lymphocytes Percent Auto 13.5 % (18.0-42.0); Mean Corpuscular HGB Conc 33.2 g/dL (32.0-36.0); Mean Corpuscular Hemoglobin 29.2 pg (27.0-31.0); Mean Corpuscular Volume 87.8 fL (78.0-102.0); Mean Platelet Volume 9.6 fl (9.2-11.8); Monocytes Absolute Auto 0.71 K/mm3 (0.10-0.90); Monocytes Percent Auto 6.8 % (2.0-11.0); Neutrophils Absolute Auto 8.1 K/mm3 (1.7-7.2); Neutrophils Percent Auto 76.8 % (50.0-70.0); Platelet Count Result 270 K/mm3 (150-420); Red Blood Count 4.35 M/mm3 (4.20-5.40); Red Cell Distribution Width 12.9 % (11.6-14.4); White Blood Count 10.5 K/mm3 (4.8-10.8)
[2020-08-18 16:55] LABS: Anion Gap 6 mmol/L (8-16); Blood Urea Nitrogen 17 mg/dL (7-18); Carbon Dioxide 30 mmol/L (21-32); Chloride 100 mmol/L (98-108); Creatine Kinase 196 U/L (26-192); Estimated Glomerular Filt Rate > 60; Glucose 102 mg/dL (70-99); Osmolality Calculated 283 mOsm/kg (285-295); Potassium 3.7 mmol/L (3.5-5.1); Sodium 136 mmol/L (136-145); Troponin I 4.7 ng/L (0.00-60.4)
[2020-08-21 18:27] LABS: SARS-CoV-2 RNA PCR Negative
== END 2020-08-18 11:27 | disposition home or self-care (01) ==
PROVIDERS: PCP Family Medicine; Visit Provider Family Medicine
DX: R07.89 Other chest pain (principal); R06.00 Dyspnea, unspecified; M79.606 Pain in leg, unspecified; Z20.822 Contact with and (suspected) exposure to COVID-19
CPT/HCPCS: 36415; 71046; 80048; 82550; 82553; 84484; 85025; 85380; 87426; C9803; U0003; U0005

== ENCOUNTER 2020-08-18 18:01 | Outpatient (CLI) | payer MEDICARE, OTHER, SELFPAY ==
--- NOTE | ~2020-08-18 | US_ITS ---
EXAMINATION: US venous doppler [facility] DATE: 08/18/2020 18:31 INDICATION: Chest pain, other specified abnormal findings of blood chemistry TECHNIQUE: [place] scale images without and with compression and Doppler images of the bilateral lower e xtremity veins were obtained. COMPARISON: None FINDINGS: The right common femoral vein, profunda femoral vein, femoral vein, popliteal vein, peroneal trunk, p osterior tibial veins, and greater saphenous vein are patent. The left common femoral vein, profunda femoral vein, femoral vein, popliteal vein, peroneal trunk, po sterior tibial veins, and greater saphenous vein are patent. IMPRESSION: 1. Patent bilateral lower extremity veins. No evidence of deep venous thrombosis. Reviewed, dictated and finalized at location A. OSOFT SYSTEMS ENGINEER IMPRESSION: 1. Patent bilateral lower extremity veins. No evidence of deep venous thrombosi s.
== END 2020-08-18 18:02 | disposition home or self-care (01) ==
PROVIDERS: PCP Family Medicine; Visit Provider Family Medicine
DX: R79.89 Other specified abnormal findings of blood chemistry (principal); R07.9 Chest pain, unspecified
CPT/HCPCS: 93970

== ENCOUNTER 2020-09-01 12:14 | Outpatient (CLI) | payer MEDICARE, OTHER, SELFPAY ==
--- NOTE | ~2020-09-01 | XR_ITS ---
XR lumbar spine 6V w bending 09/01/2020 14:26 Indication: Chronic bilateral low back pain Procedure: 7 views of the lumbar spine Comparison: 04/17/2012 Findings: There are surgical changes consistent with anterior fusion and discectomy at L5-S1. No acut e fracture or traumatic malalignment. No alteration of alignment with flexion/extension. There is ath erosclerosis. There is mild lower lumbar facet hypertrophy. There is disc narrowing at L4-5. Impression: 1: Mild lumbar spondylosis with anterior fusion at L5-S1. Reviewed, dictated and finalized at location A. TENDER Impression: 1: Mild lumbar spondylosis with anterior fusion at L5-S1.
--- NOTE | ~2020-09-01 | XR_ITS ---
XR hip LT 2V w AP pelvis DATE: 09/01/2020 14:02 INDICATION: Left hip pain TECHNIQUE: AP pelvis. AP and lateral views of the left hip COMPARISON: 08/04/2020 CT abdomen pelvis FINDINGS: Status post anterior surgical fusion at L5-S1. No fracture or dislocation, avascular necrosis or bone destruction of the left hip. Hip joint spaces are symmetric and relatively well preserved. The pubic symphysis and sacroiliac joints are intact. No pelvic fracture or bone destruction. IMPRESSION: Anterior surgical spine fusion at L5-S1 Reviewed, dictated and finalized at location A. L AID
--- NOTE | ~2020-09-01 | XR_ITS ---
XR thoracic spine 3V DATE: 09/01/2020 14:02 INDICATION: Back pain TECHNIQUE: AP, lateral, swimmer views COMPARISON: None FINDINGS: There is diffuse osteopenia. There is minimal levoscoliosis. There is mild degenerative spurring of the thoracic spine. No fracture or bone destruction is evident. The thoracic pedicles are intact. There are calcified hilar and subcarinal and azygos lymph nodes and calcified pulmonary granulomas, c onsistent with old pulmonary granulomatous disease. IMPRESSION: Osteopenia Minimal levoscoliosis Mild degenerative spurring of the thoracic spine Reviewed, dictated and finalized at location A. RAISER
[2020-09-01 13:30] LABS: Anion Gap 9 mmol/L (8-16); Blood Urea Nitrogen 8 mg/dL (7-18); Calcium 9.4 mg/dL (8.5-10.1); Carbon Dioxide 28 mmol/L (21-32); Chloride 102 mmol/L (98-108); Estimated Glomerular Filt Rate > 60; Glucose 108 mg/dL (70-99); Osmolality Calculated 287 mOsm/kg (285-295); Potassium 4.2 mmol/L (3.5-5.1); Sodium 139 mmol/L (136-145)
== END 2020-09-01 12:15 | disposition home or self-care (01) ==
PROVIDERS: PCP Family Medicine
DX: R07.89 Other chest pain (principal); M54.5 Low back pain; M54.6 Pain in thoracic spine; G89.29 Other chronic pain; M46.1 Sacroiliitis, not elsewhere classified; M70.61 Trochanteric bursitis, right hip
CPT/HCPCS: 36415; 72072; 72114; 73502; 80048

== ENCOUNTER 2020-12-26 15:35 | Outpatient (CLI) | payer MEDICARE, OTHER, SELFPAY ==
[2020-12-26 18:34] LABS: SARS-CoV-2 RNA PCR Negative (Negative)
== END 2020-12-26 15:36 | disposition home or self-care (01) ==
LOC: CHSLAB 15:38
PROVIDERS: PCP Family Medicine; Visit Provider Nurse Practitioner Family
DX: J06.9 Acute upper respiratory infection, unspecified (principal); Z20.822 Contact with and (suspected) exposure to COVID-19
CPT/HCPCS: C9803; U0003; U0005

== ENCOUNTER 2021-01-01 09:55 | Outpatient (CLI) | payer MEDICARE, OTHER, SELFPAY ==
--- NOTE | ~2021-01-01 | XR_ITS ---
EXAMINATION: XR chest 2V EXAM DATE: 01/01/2021 10:33 INDICATION: Cough and shortness of breath. TECHNIQUE: Frontal and lateral projections of the chest obtained and reviewed. There is no prior noni dy for comparison. FINDINGS: Calcified subcarinal lymph nodes from prior granulomatous process. Several calcified lung p arenchymal granulomata. The lungs are otherwise clear. There are no pleural effusions. The cardiome diastinal silhouette is within normal limits. There is no pneumothorax suspected. The bones and sof t tissues are unremarkable. IMPRESSION: No acute cardiopulmonary findings. Reviewed, dictated and finalized at location A.
[2021-01-01 10:10] LABS: Basophils Absolute Auto 0.02 K/mm3 (0.00-0.10); Basophils Percent Auto 0.3 % (0.0-1.0); Eosinophils Absolute Auto 0.06 K/mm3 (0.02-0.50); Hematocrit 41.5 % (35.0-49.0); Hemoglobin 13.7 g/dL (12.0-15.0); Immature Granulocyte Absolute 0.03 K/mm3 (0.00-0.00); Immature Granulocyte Percent A 0.5 % (0.0-0.0); Lymphocytes Absolute Auto 0.84 K/mm3 (1.10-4.50); Lymphocytes Percent Auto 13.9 % (18.0-42.0); Mean Corpuscular Hemoglobin 29.2 pg (27.0-31.0); Mean Corpuscular Volume 88.5 fL (78.0-102.0); Mean Platelet Volume 8.9 fl (9.2-11.8); Monocytes Absolute Auto 0.28 K/mm3 (0.10-0.90); Monocytes Percent Auto 4.6 % (2.0-11.0); Neutrophils Absolute Auto 4.8 K/mm3 (1.7-7.2); Neutrophils Percent Auto 79.7 % (50.0-70.0); Platelet Count Result 323 K/mm3 (150-420); Red Blood Count 4.69 M/mm3 (4.20-5.40); Red Cell Distribution Width 12.8 % (11.6-14.4); White Blood Count 6.1 K/mm3 (4.8-10.8)
[2021-01-01 10:11] LABS: Appearance Urine Sl Cloudy (Clear); Bilirubin Urine Negative (Negative); Blood Urine Negative (Negative); Glucose Urine UA Negative (Negative); Ketones Urine Negative (Negative); Leukocyte Esterase Ur Trace (Negative); Nitrate Urine Negative (Negative); Protein Urine Negative (Negative); Specific Grav Ur 1.015 (1.010-1.020); Urobilinogen Urine 0.2 mg/dL (0.2-1.0); pH Urine 6.5 (5.0-8.0)
[2021-01-01 10:18] LABS: Add Urine Microscopic? YES; Bacteria Urine 1+ /hpf; Color Urine Light Yellow (Yellow); RBC Urine None seen /hpf (0-2); Squamous Epithelial Cell Urine Few /hpf (Few); WBC Urine 0-3 /hpf (0-3)
[2021-01-01 10:19] LABS: Creatinine Urine 47.32 mg/dL (40-278); MALB Creatinine Ratio 33.8 mg/g (0-30)
[2021-01-01 11:10] LABS: Anion Gap 10 mmol/L (8-16); Blood Urea Nitrogen 8 mg/dL (7-18); Calcium 9.3 mg/dL (8.5-10.1); Carbon Dioxide 28 mmol/L (21-32); Chloride 103 mmol/L (98-108); Estimated Glomerular Filt Rate > 60; Glucose 116 mg/dL (70-99); Osmolality Calculated 291 mOsm/kg (285-295); Potassium 4.6 mmol/L (3.5-5.1); Sodium 141 mmol/L (136-145); Thyroid Stimulating Hormone 1.13 uIU/mL (0.36-3.74)
[2021-01-01 12:35] LABS: Alanine Aminotransferase 52 U/L (14-59); Albumin Level 3.8 g/dL (3.4-5.0); Alkaline Phosphatase 120 U/L (46-116); Aspartate Amino Transferase 23 U/L (15-37); Bilirubin Direct 0.1 mg/dL (0-0.2); Bilirubin,Total 0.5 mg/dL (0.00-1.00); NT Pro B Type Natriuretic Pept 257 pg/mL (0-125); Total Protein 7.4 g/dL (6.4-8.2)
== END 2021-01-01 09:56 | disposition home or self-care (01) ==
LOC: CHSLAB 09:58
PROVIDERS: PCP Family Medicine; Visit Provider Family Medicine
DX: R03.0 Elevated blood-pressure reading, without diagnosis of hypertension (principal); R06.01 Orthopnea; R05 Cough; R60.0 Localized edema
CPT/HCPCS: 36415; 71046; 80048; 80076; 81001; 82043; 83880; 84443; 85025

== ENCOUNTER 2021-01-02 12:55 | Outpatient (CLI) | payer MEDICARE, OTHER, SELFPAY ==
--- NOTE | 2021-01-02 13:06 | ECHO_ITS ---
Patient Info Name: Belinda Hawkins Age: 60 years : 1960 Gender: Female Ht: 63 in Wt: 200 lbs BSA: 2.05 m2 HR: 75 bpm BP: 139 / 70 mmHg Heart Rhythm: Sinus Rhythm Technical Quality: Good Exam Date: 01/02/2021 12:55 PM Exam Location: [facility] Patient Status: Outpatient Admit Date: 01/02/2021 Staff Ordering Physician: Payam Mello MD Distributor Operator: Sherry Pineda RDCS Attending Provider: Payam Mello MD Referring Physician: Riaz JAIME; Exam Type: CA echo doppler color flow Study Info Indications R00.0 - Tachycardia, unspecified Complete two-dimensional, color flow and Doppler transthoracic echocardiogram is performed. Strain analysis performed. History/Risk Factors Hypertension: Yes Dyslipidemia: No Congenital Heart Disease (CHD): No Peripheral Arterial Disease (PAD): No Myocardial Infarction (ID): No Chronic Lung Disease: No Obesity: Yes Renal Disease: No Coronary Artery Disease (CAD) No Congestive Heart Failure (CHF): No Cardiomyopathy/LV Systolic Dysfunction: No Diabetes Mellitus: No COPD: No Tobacco Use: Former Cerebrovascular Disease: No Deep Vein Thrombosis (DVT): None Dialysis: None Frailty Scale (CSHA): 2: Well Cardiac Arrest: No Summary 1. Complete two-dimensional, color flow and Doppler transthoracic echocardiogram is performed. 2. Left ventricular chamber dimension is normal. 3. Left ventricular systolic function is normal, estimated at 60-65%. 4. There is moderately increased left ventricular wall thickness. 5. The left ventricular diastolic function is grade II diastolic dysfunction. 6. E/e' 14 is mildly elevated. 7. Global longitudinal strain is normal at -17.8%. 8. Left atrial chamber dimension is mildly enlarged. 9. There is trace mitral valve regurgitation. 10. There is trace tricuspid valve regurgitation. 11. No pulmonary hypertension, estimated pulmonary arterial systolic pressure is 27 mmHg. Left Ventricle E/e' 14 is mildly elevated. Global longitudinal strain is normal at -17.8%. Left ventricular chamber dimension is normal. Left ventricular systolic function is normal, estimated at 60-65%. There is moderately increased left ventricular wall thickness. The left ventricular diastolic function is grade II diastolic dysfunction. Right Ventricle Right ventricular systolic function is normal and with normal TAPSE 2.0 cm. Right ventricular chamber dimension is normal. Left Atria Left atrial chamber dimension is mildly enlarged. Right Atria Right atrial chamber dimension is normal. Aortic Valve The aortic valve is trileaflet. There is no aortic valve stenosis. There is no aortic valve regurgitation. Pulmonic Valve There is no pulmonic regurgitation. Mitral Valve There is no mitral valve stenosis. There is trace mitral valve regurgitation. Tricuspid Valve There is trace tricuspid valve regurgitation. No pulmonary hypertension, estimated pulmonary arterial systolic pressure is 27 mmHg. Pericardium/Pleural There is no pericardial effusion. Inferior Vena Cava Normal inferior vena cava with >50% collapse upon inspiration consistent with normal right atrial pressure, 5 mmHg. Aorta The aortic root size at the sinus of Valsalva is normal. Left Ventricular Outflow Tract Name
== END 2021-01-02 12:56 | disposition home or self-care (01) ==
LOC: CHSIMG 12:57
PROVIDERS: PCP Family Medicine; Visit Provider Family Medicine
DX: R00.0 Tachycardia, unspecified (principal)
CPT/HCPCS: 93306

== ENCOUNTER 2021-01-04 11:09 | Outpatient (CLI) | payer MEDICARE, OTHER, SELFPAY ==
--- NOTE | ~2021-01-04 | CT_ITS ---
EXAMINATION: CT diagnostic chest wo con DATE: 01/04/2021 11:35 INDICATION: 03/29/2016 TECHNIQUE: Computed tomography (CT) of the chest was performed without intravenous contrast. The dose -length product was 303.70 mGy-cm. Automated exposure control and iterative reconstruction technique were employed. COMPARISON: CT dated 03/29/2016 FINDINGS: There are calcified mediastinal and hilar lymph nodes, consistent with chronic granulomatou s disease. There are a few scattered calcified granulomas of the lung parenchyma. No significant pleu ral or pericardial effusion. Heart size is normal. No thoracic lymphadenopathy. The upper abdomen is unremarkable. There is a left upper lobe paraseptal bleb. There are a few scattered groundglass opaci ties in the left upper lobe. No endobronchial lesions. Stable pleural-based 4 mm nodule left lower lo be, benign. No suspicious pulmonary nodules or masses. Mild thoracic spondylosis. No acute osseous ab normality. IMPRESSION: 1. Patchy groundglass opacities of the left upper lobe, most likely infectious/inflammatory. 2: Sequela of chronic granulomatous disease. Reviewed, dictated and finalized at location B. IMPRESSION: 1. Patchy groundglass opacities of the left upper lobe, most likely infectious/ inflammatory. 2: Sequela of chronic granulomatous disease.
[2021-01-04 12:37] LABS: Anion Gap 8 mmol/L (8-16); Blood Urea Nitrogen 18 mg/dL (7-18); Calcium 9.3 mg/dL (8.5-10.1); Carbon Dioxide 30 mmol/L (21-32); Chloride 100 mmol/L (98-108); Estimated Glomerular Filt Rate > 60; Glucose 86 mg/dL (70-99); Osmolality Calculated 286 mOsm/kg (285-295); Potassium 4.5 mmol/L (3.5-5.1); Sodium 138 mmol/L (136-145)
== END 2021-01-04 11:10 | disposition home or self-care (01) ==
LOC: CHSLAB 11:13
PROVIDERS: PCP Family Medicine; Visit Provider Family Medicine
DX: R91.8 Other nonspecific abnormal finding of lung field (principal); R60.0 Localized edema
CPT/HCPCS: 36415; 71250; 80048

== ENCOUNTER 2021-01-11 08:49 | Outpatient (CLI) | payer MEDICARE, OTHER, SELFPAY | END 2021-01-11 08:50 | disposition home or self-care (01) | PROVIDERS: PCP Family Medicine; Visit Provider Family Medicine | DX: R05 Cough (principal); I10 Essential (primary) hypertension | CPT/HCPCS: 94060; 94726; 94729 ==

== ENCOUNTER 2021-05-07 11:54 | Outpatient (CLI) | payer MEDICARE, SELFPAY ==
[2021-05-07 13:17] LABS: SARS-CoV-2 RNA PCR Negative (Negative)
== END 2021-05-07 11:55 | disposition home or self-care (01) ==
LOC: CHSLAB 11:57
PROVIDERS: PCP Family Medicine; Visit Provider Family Medicine
DX: J02.9 Acute pharyngitis, unspecified (principal); Z20.822 Contact with and (suspected) exposure to COVID-19
CPT/HCPCS: 87081; 87880; C9803; U0003; U0005

== ENCOUNTER 2021-09-06 14:05 | Outpatient (CLI) | payer MEDICARE, OTHER, SELFPAY ==
--- NOTE | ~2021-09-06 | US_ITS ---
EXAMINATION: US venous doppler [facility] EXAM DATE: 09/06/2021 15:47 INDICATION: Positive D Dimer TECHNIQUE: Multiple grayscale, color flow and Doppler images of the lower extremity deep venous syste ms bilaterally were obtained and reviewed. Comparison is made to prior examination from 08/18/2020. FINDINGS: Right side: The right common femoral, femoral and profunda veins demonstrate normal color flow, respi ratory variation, augmentation and compressibility. Compressibility, color flow confirmed within the right popliteal, posterior tibial, peroneal, and greater saphenous veins. Left side: The left common femoral, femoral and profunda veins demonstrate normal color flow, respira tory variation, augmentation and compressibility. Compressibility, color flow confirmed within the l eft popliteal, posterior tibial, peroneal, and greater saphenous veins. IMPRESSION: 1. No lower extremity deep venous thrombosis bilaterally. Reviewed, dictated and finalized at location B. OYEE BENEFITS SPECIALIST
[2021-09-06 14:19] LABS: Basophils Absolute Auto 0.02 K/mm3 (0.00-0.10); Basophils Percent Auto 0.4 % (0.0-1.0); Eosinophils Absolute Auto 0.15 K/mm3 (0.02-0.50); Hematocrit 36.4 % (35.0-49.0); Hemoglobin 11.8 g/dL (12.0-15.0); Immature Granulocyte Absolute 0.01 K/mm3 (0.00-0.00); Immature Granulocyte Percent A 0.2 % (0.0-0.0); Lymphocytes Absolute Auto 1.02 K/mm3 (1.10-4.50); Lymphocytes Percent Auto 20.1 % (18.0-42.0); Mean Corpuscular HGB Conc 32.4 g/dL (32.0-36.0); Mean Corpuscular Hemoglobin 28.9 pg (27.0-31.0); Mean Platelet Volume 9.5 fl (9.2-11.8); Monocytes Absolute Auto 0.47 K/mm3 (0.10-0.90); Monocytes Percent Auto 9.3 % (2.0-11.0); Neutrophils Absolute Auto 3.4 K/mm3 (1.7-7.2); Platelet Count Result 297 K/mm3 (150-420); Red Blood Count 4.09 M/mm3 (4.20-5.40); Red Cell Distribution Width 13.5 % (11.6-14.4); White Blood Count 5.1 K/mm3 (4.8-10.8)
[2021-09-06 14:39] LABS: D Dimer 0.93 mg/L (0.19-0.50)
[2021-09-06 14:48] LABS: Alanine Aminotransferase 42 U/L (14-59); Albumin Level 3.1 g/dL (3.4-5.0); Alkaline Phosphatase 86 U/L (46-116); Anion Gap 9 mmol/L (8-16); Aspartate Amino Transferase 24 U/L (15-37); Bilirubin,Total 0.3 mg/dL (0.00-1.00); Blood Urea Nitrogen 12 mg/dL (7-18); Calcium 9.1 mg/dL (8.5-10.1); Carbon Dioxide 31 mmol/L (21-32); Chloride 100 mmol/L (98-108); Estimated Glomerular Filt Rate > 60; Glucose 96 mg/dL (70-99); Osmolality Calculated 289 mOsm/kg (285-295); Potassium 3.9 mmol/L (3.5-5.1); Sodium 140 mmol/L (136-145); Thyroid Stimulating Hormone 3.68 uIU/mL (0.36-3.74); Total Protein 7.2 g/dL (6.4-8.2)
== END 2021-09-06 14:06 | disposition home or self-care (01) ==
PROVIDERS: PCP Family Medicine; Visit Provider Family Medicine
DX: L29.9 Pruritus, unspecified (principal); M79.604 Pain in right leg; R79.1 Abnormal coagulation profile; I10 Essential (primary) hypertension
CPT/HCPCS: 36415; 80053; 84443; 85025; 85380; 93970

== ENCOUNTER 2021-10-30 07:44 | Outpatient (CLI) | payer MEDICARE, OTHER, SELFPAY ==
--- NOTE | ~2021-10-30 | MR_ITS ---
EXAMINATION: MR lumbar spine w con DATE: 10/30/2021 10:26 INDICATION: Low back pain. TECHNIQUE: Magnetic resonance imaging (MRI) of the lumbar spine was performed with 10 mL MultiHance i ntravenous contrast. Sequences included sagittal T2-weighted FSE, sagittal T2-weighted FS FSE, and sa gittal and axial T1-weighted FSE. Postcontrast sequences included axial T2-weighted FSE and axial and sagittal T1-weighted FS FSE. COMPARISON: Lumbar spine MRI 03/27/2013 FINDINGS: There is 6 degrees levocurvature of lumbar spine. There are changes of anterior fusion proc edure at L5-S1 with interbody bone graft and anterior plate and screws. Vertebral body heights are no rmal. Intervertebral disc heights are normal. The distal spinal cord signal intensity is normal. The conus medullaris is at L2. The following disc levels are specifically discussed: L1-L2: The disc does not extend beyond the endplate margin. There is mild bilateral facet joint osteo arthritis. There is no neural foraminal stenosis. There is no central canal stenosis. L2-L3: The disc does not extend beyond the endplate margin. There is mild bilateral facet joint osteo arthritis. There is no neural foraminal stenosis. There is no central canal stenosis. L3-L4: The disc does not extend beyond the endplate margin. There is severe bilateral facet joint ost eoarthritis. There is no neural foraminal stenosis. There is no central canal stenosis. L4-L5: The disc is mildly bulging. There is moderate right and severe left facet joint osteoarthritis . There is mild bilateral neural foraminal stenosis. There is no central canal stenosis. L5-S1: There is moderate bilateral facet joint osteoarthritis. There is mild bilateral neural foramin al stenosis. There is no central canal stenosis. IMPRESSION: 1. Mild lumbar spondylosis, stable from 03/27/2013. 2. Anterior fusion procedure at L5-S1. Reviewed, dictated and finalized at location A.
--- NOTE | ~2021-10-30 | MR_ITS ---
EXAMINATION: MR pelvis w con DATE: 10/30/2021 10:27 INDICATION: Pelvic and perineal pain. TECHNIQUE: Magnetic resonance imaging (MRI) of the pelvis was performed with 10 mL MultiHance intrave nous contrast. Sequences included axial T2-weighted FS FSE, T1-weighted FSE, sagittal T2-weighted FS FSE, axial T1-weighted FS FSE, and postcontrast axial, coronal, and sagittal T1-weighted FS FSE. COMPARISON: Pelvis MRI 07/04/2012 FINDINGS: There is diverticulosis of the colon without evidence of diverticulitis. There are no pathologically enlarged lymph nodes. There is no free intraperitoneal fluid. There are changes of anterior fusion pr ocedure at L5-S1. No fracture. There is mild osteoarthritis of the hips. No hip joint effusion. The m usculature is unremarkable. The hamstring tendon origins are normal. The iliopsoas tendons are normal . The gluteus minimus and gluteus medius tendons are normal. There is mild right and moderate left tr ochanteric bursitis. IMPRESSION: 1. Mild osteoarthritis of the hips. 2. Mild right and moderate left trochanteric bursitis. Reviewed, dictated and finalized at location A.
[2021-10-30 08:04] LABS: Estimated Glomerular Filt Rate > 60
== END 2021-10-30 07:45 | disposition home or self-care (01) ==
LOC: CHSIMG 07:47
PROVIDERS: PCP Family Medicine; Visit Provider Family Medicine
DX: M54.50 Low back pain, unspecified (principal); R10.2 Pelvic and perineal pain
CPT/HCPCS: 72149; 72196; A9577

== ENCOUNTER 2021-12-28 13:58 | Outpatient (CLI) | payer MEDICARE, OTHER, SELFPAY ==
--- NOTE | ~2021-12-28 | XR_ITS ---
EXAMINATION: XR pelvis min 3V INDICATION: Dislocation of the sacroiliac/sacrococcygeal joint TECHNIQUE: Three views of the pelvis are obtained. COMPARISON: 09/01/2020 FINDINGS: There are chronic changes of anterior fusion at L5-S1 with interbody device placement. Ther e has been interval left sacroiliac fusion. Bone alignment is normal. No fracture is identified. IMPRESSION: 1. Changes of interval left sacroiliac fusion without acute findings. Reviewed, dictated and finalized at location F.
== END 2021-12-28 13:59 | disposition home or self-care (01) ==
LOC: CHSIMG 14:02
PROVIDERS: PCP Family Medicine
DX: S33.2XXA Dislocation of sacroiliac and sacrococcygeal joint, initial encounter (principal)
CPT/HCPCS: 72190

== ENCOUNTER 2022-03-04 14:28 | Outpatient (CLI) | payer MEDICARE, SELFPAY ==
[2022-03-04 14:51] LABS: Basophils Absolute Auto 0.04 K/mm3 (0.00-0.10); Basophils Percent Auto 0.5 % (0.0-1.0); Eosinophils Absolute Auto 0.09 K/mm3 (0.02-0.50); Eosinophils Percent Auto 1.2 % (1.0-6.0); Hematocrit 43.9 % (35.0-49.0); Hemoglobin 14.5 g/dL (12.0-15.0); Immature Granulocyte Absolute 0.02 K/mm3 (0.00-0.00); Immature Granulocyte Percent A 0.3 % (0.0-0.0); Lymphocytes Absolute Auto 1.43 K/mm3 (1.10-4.50); Lymphocytes Percent Auto 19.5 % (18.0-42.0); Mean Corpuscular Hemoglobin 28.7 pg (27.0-31.0); Mean Corpuscular Volume 86.9 fL (78.0-102.0); Mean Platelet Volume 9.9 fl (9.2-11.8); Monocytes Absolute Auto 0.47 K/mm3 (0.10-0.90); Monocytes Percent Auto 6.4 % (2.0-11.0); Neutrophils Absolute Auto 5.3 K/mm3 (1.7-7.2); Neutrophils Percent Auto 72.1 % (50.0-70.0); Platelet Count Result 284 K/mm3 (150-420); Red Blood Count 5.05 M/mm3 (4.20-5.40); Red Cell Distribution Width 12.9 % (11.6-14.4); White Blood Count 7.4 K/mm3 (4.8-10.8)
[2022-03-04 15:40] LABS: Alanine Aminotransferase 58 U/L (14-59); Albumin Level 3.6 g/dL (3.4-5.0); Alkaline Phosphatase 150 U/L (46-116); Anion Gap 11 mmol/L (8-16); Aspartate Amino Transferase 23 U/L (15-37); Bilirubin,Total 0.2 mg/dL (0.00-1.00); Blood Urea Nitrogen 11 mg/dL (7-18); Calcium 9.1 mg/dL (8.5-10.1); Carbon Dioxide 27 mmol/L (21-32); Chloride 103 mmol/L (98-108); Creatine Kinase 49 U/L (26-192); Estimated Glomerular Filt Rate > 60; Glucose 103 mg/dL (70-99); Osmolality Calculated 291 mOsm/kg (285-295); Potassium 4.1 mmol/L (3.5-5.1); Sodium 141 mmol/L (136-145)
== END 2022-03-04 14:29 | disposition home or self-care (01) ==
LOC: CHSLAB 14:32
PROVIDERS: PCP Family Medicine; Visit Provider Family Medicine
DX: R07.89 Other chest pain (principal)
CPT/HCPCS: 36415; 80053; 82550; 82553; 84484; 85025

== ENCOUNTER 2022-03-12 09:34 | Outpatient (CLI) | payer MEDICARE, SELFPAY ==
[2022-03-12 09:51] LABS: Add Urine Microscopic? YES; Appearance Urine Clear (Clear); Basophils Absolute Auto 0.02 K/mm3 (0.00-0.10); Basophils Percent Auto 0.3 % (0.0-1.0); Bilirubin Urine Negative (Negative); Blood Urine Negative (Negative); Color Urine Yellow (Yellow); Eosinophils Absolute Auto 0.19 K/mm3 (0.02-0.50); Eosinophils Percent Auto 3.3 % (1.0-6.0); Glucose Urine UA Negative (Negative); Hematocrit 37.1 % (35.0-49.0); Hemoglobin 11.9 g/dL (12.0-15.0); Immature Granulocyte Absolute 0.02 K/mm3 (0.00-0.00); Immature Granulocyte Percent A 0.3 % (0.0-0.0); Ketones Urine Negative (Negative); Leukocyte Esterase Ur Trace (Negative); Lymphocytes Absolute Auto 1.25 K/mm3 (1.10-4.50); Lymphocytes Percent Auto 21.7 % (18.0-42.0); Mean Corpuscular HGB Conc 32.1 g/dL (32.0-36.0); Mean Corpuscular Hemoglobin 28.7 pg (27.0-31.0); Mean Corpuscular Volume 89.4 fL (78.0-102.0); Mean Platelet Volume 9.4 fl (9.2-11.8); Monocytes Absolute Auto 0.56 K/mm3 (0.10-0.90); Monocytes Percent Auto 9.7 % (2.0-11.0); Neutrophils Absolute Auto 3.7 K/mm3 (1.7-7.2); Neutrophils Percent Auto 64.7 % (50.0-70.0); Nitrate Urine Negative (Negative); Platelet Count Result 267 K/mm3 (150-420); Protein Urine Negative (Negative); Red Blood Count 4.15 M/mm3 (4.20-5.40); Red Cell Distribution Width 13.3 % (11.6-14.4); Specific Grav Ur >= 1.030 (1.010-1.020); Urobilinogen Urine 0.2 mg/dL (0.2-1.0); White Blood Count 5.8 K/mm3 (4.8-10.8)
[2022-03-12 09:57] LABS: Bacteria Urine 1+ /hpf; RBC Urine None seen /hpf (0-2); Squamous Epithelial Cell Urine Many /hpf (Few); WBC Urine 0-3 /hpf (0-3)
[2022-03-12 10:08] LABS: Alanine Aminotransferase 53 U/L (14-59); Albumin Level 3.3 g/dL (3.4-5.0); Alkaline Phosphatase 118 U/L (46-116); Anion Gap 5 mmol/L (8-16); Aspartate Amino Transferase 22 U/L (15-37); Bilirubin,Total 0.3 mg/dL (0.00-1.00); Blood Urea Nitrogen 10 mg/dL (7-18); Calcium 8.6 mg/dL (8.5-10.1); Carbon Dioxide 31 mmol/L (21-32); Chloride 105 mmol/L (98-108); Estimated Glomerular Filt Rate > 60; Glucose 88 mg/dL (70-99); Osmolality Calculated 290 mOsm/kg (285-295); Potassium 3.5 mmol/L (3.5-5.1); Sodium 141 mmol/L (136-145); Total Protein 7.1 g/dL (6.4-8.2)
== END 2022-03-12 09:35 | disposition home or self-care (01) ==
LOC: CHSLAB 09:37
PROVIDERS: PCP Family Medicine; Visit Provider Family Medicine
DX: R60.9 Edema, unspecified (principal)
CPT/HCPCS: 36415; 80053; 81001; 85025

== ENCOUNTER 2022-03-14 08:33 | Outpatient (CLI) | payer MEDICARE, OTHER, SELFPAY ==
--- NOTE | ~2022-03-14 | US_ITS ---
US soft tissue upper back 03/14/2022 09:05 Indication: Palpable abnormalities of the back Procedure: High-resolution Limited ultrasound of the back Comparison: No prior studies for comparison. Findings: In the area of palpable concern in the upper back to the right of midline there is an oval hyperechoic mass measuring 1.7 x 1.1 x 0.72 cm with circumscribed margins, no posterior shadowing. Th ere is a second oval hypoechoic mass with parallel orientation, no posterior shadowing and no interna l vascularity measuring 1 x 1 x 0.7 cm. These are most likely benign lipomas, although follow-up ultr asound in 6 months recommended to assess stability. Impression: 1: Probable benign soft tissue masses of the back in the area of palpable concern. These are most lik esperanza benign lipomas, although follow-up ultrasound in 6 months recommended. Reviewed, dictated and finalized at location B. Impression: 1: Probable benign soft tissue masses of the back in the area of palpable leda rn. These are most likely benign lipomas, although follow-up ultrasound in 6 mo nths recommended.
== END 2022-03-14 08:34 | disposition home or self-care (01) ==
LOC: CHSIMG 08:34
PROVIDERS: PCP Family Medicine; Visit Provider Family Medicine
DX: R22.2 Localized swelling, mass and lump, trunk (principal)
CPT/HCPCS: 76604

== ENCOUNTER 2022-04-30 10:22 | Outpatient (CLI) | payer MEDICARE, OTHER, SELFPAY ==
--- NOTE | ~2022-04-30 | MR_ITS ---
EXAMINATION: MR lumbar spine wo con DATE: 04/30/2022 11:00 INDICATION: Lumbar radiculopathy. TECHNIQUE: Magnetic resonance imaging (MRI) of the lumbar spine was performed without intravenous con trast. Sequences included sagittal T2-weighted FSE, sagittal T2-weighted FS FSE, sagittal T1-weighted FSE, and axial T2-weighted FSE. COMPARISON: Lumbar spine MRI 10/30/2021 FINDINGS: There is 4 degrees levocurvature of cervical spine. Vertebral body heights are normal. Ther e are changes of anterior fusion procedure at L5-S1 with interbody device and anterior plate and scre ws. There are changes of fusion procedure of the left sacroiliac joint. There is mildly decreased dis c height at L4-L5. The distal spinal cord signal intensity is normal. The conus medullaris is at L1-L 2. The following disc levels are specifically discussed: L1-L2: The disc does not extend beyond the endplate margin. There is mild bilateral facet joint osteo arthritis. There is no neural foraminal stenosis. There is no central canal stenosis. L2-L3: The disc is mildly bulging. There is mild bilateral facet joint osteoarthritis. There is mild bilateral neural foraminal stenosis. There is no central canal stenosis. L3-L4: The disc is bulging. There is severe bilateral facet joint osteoarthritis. There is mild bilat eral neural foraminal stenosis. There is mild central canal stenosis. L4-L5: The disc is bulging. There is severe bilateral facet joint osteoarthritis. There is mild bilat eral neural foraminal stenosis. There is mild central canal stenosis. L5-S1: There is mild bilateral facet joint osteoarthritis. There is mild bilateral neural foraminal s tenosis. There is mild central canal stenosis. IMPRESSION: 1. Mild lumbar spondylosis, slightly worsened at L3-L4 from 10/30/2021. 2. Anterior fusion procedure at L5-S1. Reviewed, dictated and finalized at location A.
== END 2022-04-30 10:23 | disposition home or self-care (01) ==
LOC: CHSIMG 10:24
PROVIDERS: PCP Family Medicine; Visit Provider Nurse Practitioner Family
DX: M54.16 Radiculopathy, lumbar region (principal)
CPT/HCPCS: 72148

== ENCOUNTER 2022-06-29 08:15 | Outpatient (CLI) | payer MEDICARE, OTHER, SELFPAY ==
--- NOTE | ~2022-06-29 | MR_ITS ---
EXAMINATION: MR thoracic spine wo con DATE: 06/29/2022 09:12 INDICATION: Thoracic back pain TECHNIQUE: Magnetic resonance imaging (MRI) of the thoracic spine was performed without intravenous c ontrast. Sagittal localizer T1-weighted FSE of the cervicothoracic spine was obtained. Thoracic spine sequences included sagittal T2-weighted FSE, sagittal T1-weighted SE, Sagittal T2-weighted FS FSE, a nd axial T2-weighted FSE. COMPARISON: Thoracic spine radiographs dated 09/01/2020 FINDINGS: A degree thoracic levocurvature. Sagittal alignment is normal. Moderate lower cervical spondylosis.Ve rtebral body heights are normal. Mild fibrovascular degenerative endplate changes at the anterior sup erior endplate of T10. Marrow signal is otherwise unremarkable. Moderate disc height loss at T7-T8. Mild disc height loss at the remaining levels between T3-T4 and T11-T12. Small right paracentral disc protrusion at T7-T8 which flattens the right ventral surface of the cord with minimal central canal stenosis. Slightly larger small right paracentral disc protrusion with annular fissure at T8-T9 which results in mild central canal stenosis and mildly indents the right ventral surface of the cord. Mariel ular fissure and small left paracentral disc extrusion at T10-T11 with disc material extending up to 3 mm cephalad to the level of the inferior endplate of T10 resulting in minimal central canal stenosi s and mild flattening of the left ventral surface of the cord. Minimal diffuse disc bulge at T11-T12 which is without significant central canal stenosis. There is normal spinal cord signal. The conus te rminates below level of the [id number] which extends to the midportion of L1. Multilevel mild thor acic facet osteoarthritis without significant neural foraminal stenosis. Visualized paravertebral sof t tissues are unremarkable. IMPRESSION: 1. Mild lumbar levocurvature with mild to moderate spondylosis. Reviewed, dictated and finalized at location A. [employer]
== END 2022-06-29 08:16 | disposition home or self-care (01) ==
LOC: CHSIMG 08:17
PROVIDERS: PCP Family Medicine; Visit Provider Nurse Practitioner Family
DX: M54.6 Pain in thoracic spine (principal)
CPT/HCPCS: 72146

== ENCOUNTER 2022-07-29 16:00 | Outpatient (CLI) | payer MEDICARE, OTHER, SELFPAY ==
--- NOTE | ~2022-07-29 | XR_ITS ---
EXAMINATION: XR chest 2V Exam Date/Time: 07/29/2022 16:45 [employer] HISTORY: COUGH/COVID POSITIVE Comparison: 12/01/2020. RESULT: Lines, tubes, and devices: None. Lungs and pleura: No focal consolidation, pneumothorax, or large effusion. Stable pleural bleb/dew a ir cyst in the left lung. Stable chronic appearing but colitis changes. Cardiomediastinal silhouette: Stable. Other: No acute osseous or upper abdominal finding. IMPRESSION: No acute cardiopulmonary process. Reviewed, dictated and finalized at location K. E [employer]
== END 2022-07-29 16:01 | disposition home or self-care (01) ==
LOC: CHSIMG 16:04
PROVIDERS: PCP Family Medicine; Visit Provider Family Medicine
DX: R05.1 Acute cough (principal)
CPT/HCPCS: 71046

== ENCOUNTER 2022-09-24 13:44 | Outpatient (CLI) | payer MEDICARE, OTHER, SELFPAY ==
--- NOTE | ~2022-09-24 | XR_ITS ---
EXAM: XR ankle LT min 3V, XR foot LT min 3V DATE: 09/24/2022 14:17 HISTORY: pain arch of LT foot, feels like walking on golf ball x1wk . COMPARISON: None available. FINDINGS: Normal mineralization. No fracture or dislocation. No lytic or blastic lesion. Mild scatte red degenerative change. Achilles and plantar enthesopathy. No erosion or periosteal change. Soft tis sues within normal limits. IMPRESSION: No acute osseous finding in the left foot or left ankle. Reviewed, dictated and finalized at location K. [employer]CH[employer] IMPRESSION: No acute osseous finding in the left foot or left ankle.
== END 2022-09-24 13:45 | disposition home or self-care (01) ==
LOC: CHSIMG 13:47
PROVIDERS: PCP Family Medicine; Visit Provider Family Medicine
DX: M79.672 Pain in left foot (principal)
CPT/HCPCS: 73610; 73630

== ENCOUNTER 2022-11-25 13:04 | Outpatient (CLI) | payer MEDICARE, OTHER, SELFPAY ==
[2022-11-25 13:36] LABS: Appearance Urine Clear (Clear); Basophils Absolute Auto 0.04 K/mm3 (0.00-0.10); Basophils Percent Auto 0.5 % (0.0-1.0); Bilirubin Urine Negative (Negative); Blood Urine Negative (Negative); Color Urine Light Yellow (Yellow); Eosinophils Absolute Auto 0.06 K/mm3 (0.02-0.50); Eosinophils Percent Auto 0.7 % (1.0-6.0); Glucose Urine UA Negative (Negative); Hematocrit 42.8 % (35.0-49.0); Hemoglobin 14.3 g/dL (12.0-15.0); Immature Granulocyte Absolute 0.02 K/mm3 (0.00-0.00); Immature Granulocyte Percent A 0.2 % (0.0-0.0); Ketones Urine Negative (Negative); Leukocyte Esterase Ur Negative (Negative); Lymphocytes Absolute Auto 1.14 K/mm3 (1.10-4.50); Mean Corpuscular HGB Conc 33.4 g/dL (32.0-36.0); Mean Corpuscular Hemoglobin 29.1 pg (27.0-31.0); Mean Corpuscular Volume 87.2 fL (78.0-102.0); Mean Platelet Volume 9.9 fl (9.2-11.8); Monocytes Absolute Auto 0.44 K/mm3 (0.10-0.90); Monocytes Percent Auto 5.4 % (2.0-11.0); Neutrophils Absolute Auto 6.4 K/mm3 (1.7-7.2); Neutrophils Percent Auto 79.2 % (50.0-70.0); Nitrate Urine Negative (Negative); Platelet Count Result 273 K/mm3 (150-420); Protein Urine Negative (Negative); Red Blood Count 4.91 M/mm3 (4.20-5.40); Red Cell Distribution Width 12.9 % (11.6-14.4); Urobilinogen Urine 0.2 mg/dL (0.2-1.0); White Blood Count 8.1 K/mm3 (4.8-10.8); pH Urine 6.5 (5.0-8.0)
[2022-11-25 13:42] LABS: Add Urine Microscopic? NO
[2022-11-25 13:44] LABS: Creatinine Urine 34.47 mg/dL (40-278); MALB Creatinine Ratio 37.7 mg/g (0-30); Microalbumin Urine Random < 13.0 mg/L
[2022-11-25 14:16] LABS: Alanine Aminotransferase 98 U/L (14-59); Albumin Level 4.1 g/dL (3.4-5.0); Alkaline Phosphatase 150 U/L (46-116); Anion Gap 10 mmol/L (8-16); Aspartate Amino Transferase 33 U/L (15-37); Bilirubin,Total 0.2 mg/dL (0.00-1.00); Blood Urea Nitrogen 11 mg/dL (7-18); Calcium 9.3 mg/dL (8.5-10.1); Carbon Dioxide 28 mmol/L (21-32); Chloride 103 mmol/L (98-108); Estimated Glomerular Filt Rate > 60; Glucose 124 mg/dL (70-99); Osmolality Calculated 292 mOsm/kg (285-295); Potassium 4.2 mmol/L (3.5-5.1); Sodium 141 mmol/L (136-145); Thyroid Stimulating Hormone 2.76 uIU/mL (0.36-3.74); Total Protein 7.9 g/dL (6.4-8.2)
== END 2022-11-25 13:05 | disposition home or self-care (01) ==
LOC: CHSLAB 13:06
PROVIDERS: PCP Family Medicine; Visit Provider Family Medicine
DX: I10 Essential (primary) hypertension (principal); F11.90 Opioid use, unspecified, uncomplicated; Z79.899 Other long term (current) drug therapy
CPT/HCPCS: 36415; 80053; 80307; 80361; 80365; 81003; 82043; 84443; 85025; G0480

== ENCOUNTER 2022-12-25 16:56 | Outpatient (CLI) | payer MEDICARE, OTHER, SELFPAY ==
[2022-12-25 17:34] LABS: Anion Gap 10 mmol/L (8-16); Blood Urea Nitrogen 11 mg/dL (7-18); Calcium 9.3 mg/dL (8.5-10.1); Carbon Dioxide 30 mmol/L (21-32); Chloride 101 mmol/L (98-108); Estimated Glomerular Filt Rate 59; Glucose 110 mg/dL (70-99); Hemoglobin A1C 4.7 % (<5.7); Osmolality Calculated 292 mOsm/kg (285-295); Sodium 141 mmol/L (136-145)
== END 2022-12-25 16:57 | disposition home or self-care (01) ==
LOC: CHSLAB 17:00
PROVIDERS: PCP Family Medicine; Visit Provider Family Medicine
DX: R73.9 Hyperglycemia, unspecified (principal)
CPT/HCPCS: 36415; 80048; 83036

== ENCOUNTER 2023-03-20 00:57 | Emergency (ER) | payer MEDICARE, OTHER, SELFPAY ==
--- NOTE | ~2023-03-20 | CT_ITS ---
EXAMINATION: CT abdomen pelvis w con DATE: 03/20/2023 02:53 INDICATION: Abdominal pain. TECHNIQUE: Computed tomography (CT) of the abdomen and pelvis was performed with 100 mL Omnipaque 350 intravenous contrast. Automated exposure control and iterative reconstruction technique were employe d. The dose-length product was 980.24 mGy-cm. COMPARISON: CT abdomen and pelvis 08/04/2020 FINDINGS: The visualized portions of the lung bases demonstrate mild atelectasis. There is a 3 mm nod ule in left lower lobe, likely benign. No pleural effusion. The heart size is normal. No pericardial effusion. There is a small sliding hiatal hernia. The liver, gallbladder, pancreas, and adrenal gland s are normal. Calcifications in the spleen are consistent with old granulomatous disease. There is fo jdayn cortical thinning of right kidney. There are cysts in the kidneys measuring up to 6 mm on the lef t. There is a 4 mm stone in left kidney. There is a supraumbilical ventral hernia containing fat. The re is an infraumbilical ventral hernia containing fat. There is diverticulosis of the colon without e vidence of diverticulitis. The appendix is normal. There are no dilated loops of bowel. There are no pathologically enlarged lymph nodes. There is no free intraperitoneal fluid. There is calcified ather osclerosis of the aorta and many of the other arteries. There are changes of ankylosis procedure of l eft sacroiliac joint. There are changes of anterior fusion procedure at L5-S1. There is mild thoracic and lumbar spondylosis. IMPRESSION: 1. Ventral hernias containing fat. 2. Small sliding hiatal hernia. Reviewed, dictated and finalized at location A.
--- NOTE | ~2023-03-20 | CT_ITS ---
EXAMINATION: CT thoracic spine wo con DATE: 03/20/2023 02:53 INDICATION: Back pain. Fall. TECHNIQUE: Computed tomography (CT) of the thoracic spine was performed without intravenous contrast. Automated exposure control and iterative reconstruction technique were employed. The dose-length pro duct was 781.51 mGy-cm. COMPARISON: Chest CT 03/29/2016 FINDINGS: Calcified pulmonary nodules and calcified hilar and mediastinal lymph nodes are consistent with old granulomatous disease. There is a small sliding hiatal hernia. There is 4 degrees levocurvat ure of thoracic spine. There is mild chronic anterior wedging of T6 and T12 vertebral bodies. There i s mildly decreased disc height from T4-T5 through T11-T12. There is multilevel mild facet joint osteo arthritis in thoracic spine. In thoracic spine, there is no neural foraminal stenosis. There is mild central canal stenosis at T7-T8, T8-T9, and T10-T11. IMPRESSION: 1. Mild thoracic spondylosis. Reviewed, dictated and finalized at location A.
--- NOTE | ~2023-03-20 | CT_ITS ---
EXAMINATION: CT lumbar spine wo con DATE: 03/20/2023 02:53 INDICATION: Low back pain. TECHNIQUE: Computed tomography (CT) of the lumbar spine was performed without intravenous contrast. A utomated exposure control and iterative reconstruction technique were employed. The dose-length produ ct was 971.41 mGy-cm. COMPARISON: None FINDINGS: Bone alignment is normal. There is mild chronic anterior wedging of T11 and T12 vertebral b odies. There are changes of anterior fusion procedure at L5-S1 with interpedicular screws and healed interbody bone graft. Intervertebral disc heights are normal. The following disc levels are specifica lly discussed: L1-L2: The disc does not extend beyond the endplate margin. There is mild bilateral facet joint osteo arthritis. There is no neural foraminal stenosis. There is no central canal stenosis. L2-L3: The disc does not extend beyond the endplate margin. There is mild bilateral facet joint osteo arthritis. There is no neural foraminal stenosis. There is no central canal stenosis. L3-L4: The disc is bulging. There is severe bilateral facet joint osteoarthritis. There is mild bilat eral neural foraminal stenosis. There is mild central canal stenosis. L4-L5: The disc is bulging. There is severe bilateral facet joint osteoarthritis. There is mild bilat eral neural foraminal stenosis. There is mild central canal stenosis. L5-S1: There is severe bilateral facet joint osteoarthritis. There is mild bilateral neural foraminal stenosis. There is mild central canal stenosis. IMPRESSION: 1. Mild lumbar spondylosis. 2. Anterior fusion procedure at L5-S1. Reviewed, dictated and finalized at location A.
[2023-03-20 00:59] VITALS: BP 181/110; RESP 18; TEMP 36.4; O2SAT 99
--- NOTE | 2023-03-20 00:59 | ED.ABDPAIN ---
HPI - Abdominal Pain General Chief Complaint: Abdominal Pain Stated Complaint: Fall Source: patient Mode of arrival: ambulatory Limitations: no limitations History of Present Illness HPI narrative: 62-year-old history of hypertension, kidney stones, ventral hernia, diverticulosis, hepatic steatosis, status post knee surgery, chronic low and mid back pain status post spinal fusion L5/S1 on oxycodone and cyclobenzaprine had a fall 2 days ago. She presents to the ER with -- mid and low back pain. No radiation of the pain. patient walked to the ER without any support. -- Nausea with multiple episodes of vomiting -- lower abdominal pain MD elicited complaint: abdominal pain Pertinent past history: kidney stones and other ( history of diverticulosis with fatty) Onset (ago): day(s) ( started 2 days ago.) Pain Consistency: constant Severity: severe Quality: aching Radiation: none Migration to: no migration Exacerbating factors: nothing Relieving factors: nothing Associated symptoms: nausea, vomiting and chills Related Data Home Medications Medication Instructions Recorded Confirmed amitriptyline 10 mg tablet 20 mg PO HS 04/25/20 08/03/20 Allergies Allergy/AdvReac Type Severity Reaction Status Date / Time shellfish derived Allergy Unknown Verified 01/28/20 07:25 Review of Systems Review of Systems: All systems reviewed & are unremarkable except as noted in HPI and below Constitutional: Constitutional: Reports as per HPI and Reports no additional constitutional complaints Eyes: Eyes: Reports as per HPI and Reports no additional eye complaints ENT: Reports system reviewed and no additional complaints, except as documented and Reports as per HPI Cardiovascular: Cardiovascular: Reports as per HPI and Reports no additional cardiovascular complaints Respiratory: Respiratory: Reports as per HPI and Reports no additional respiratory complaints Gastrointestinal: Gastrointestinal: Reports as per HPI, Reports no additional gastrointestinal complaints, Reports abdominal pain, Reports nausea and Reports vomiting Genitourinary: Genitourinary: Reports no additional female genitourinary complaints and Reports as per HPI Musculoskeletal: Musculoskeletal: Reports no additional musculoskeletal complaints, Reports as per HPI and Reports back pain Integumentary/Breasts: Skin/Breast: Reports system reviewed and no additional complaints, except as docu and Reports as per HPI Neurologic: Reports system reviewed and no additional complaints, except as documented and Reports as per HPI Psychiatric: Psychiatric: Reports no additional psychiatric complaints and Reports as per HPI Endocrine: Endocrine: Reports no additional endocrine complaints and Reports as per HPI Hematologic/Lymphatic: Hematologic/Lymphatic: Reports no additional hematologic/lymphatic complaints and Reports as per HPI Allergic/Immunologic: Allergic/Immunologic: Reports no additional allergic/immunologic complaints and Reports as per HPI PMFSH Past Medical History Medical History HTN (hypertension) Kidney stone Surgical History Surgical History H/O knee surgery History of back surgery Family History Family History Mother Sepsis Social History Social History Smoking status: Former smoker Second hand tobacco smoke exposure: Yes Alcohol intake: never Substance use: never Substance use type: does not use Spiritual care concerns: No Exam Narrative: Tachycardia Const: General: ill appearing Nutritional Appearance: well nourished Orientation/consciousness: patient oriented x3 Limitations: no limitations HENMT: Head: normal to inspection Ears: external ears normal Face/Nose/Sinus: Normal external nose present Fac
[2023-03-20 01:18] VITALS: BP 165/118; PULSE 125
[2023-03-20] MEDS: LACTATED RINGERS 1,000 ML 150 ML IV CONT (01:22)
[2023-03-20 01:32] LABS: Basophils Absolute Auto 0.02 K/mm3 (0.00-0.10); Basophils Percent Auto 0.2 % (0.0-1.0); Eosinophils Absolute Auto 0.01 K/mm3 (0.02-0.50); Eosinophils Percent Auto 0.1 % (1.0-6.0); Hematocrit 46.7 % (35.0-49.0); Hemoglobin 15.7 g/dL (12.0-15.0); Immature Granulocyte Absolute 0.05 K/mm3 (0.00-0.00); Immature Granulocyte Percent A 0.4 % (0.0-0.0); Lymphocytes Absolute Auto 1.12 K/mm3 (1.10-4.50); Lymphocytes Percent Auto 8.9 % (18.0-42.0); Mean Corpuscular HGB Conc 33.6 g/dL (32.0-36.0); Mean Corpuscular Hemoglobin 29.6 pg (27.0-31.0); Mean Corpuscular Volume 88.1 fL (78.0-102.0); Mean Platelet Volume 10.2 fl (9.2-11.8); Monocytes Absolute Auto 0.43 K/mm3 (0.10-0.90); Monocytes Percent Auto 3.4 % (2.0-11.0); Neutrophils Absolute Auto 10.9 K/mm3 (1.7-7.2); Platelet Count Result 283 K/mm3 (150-420); Red Cell Distribution Width 12.1 % (11.6-14.4); White Blood Count 12.5 K/mm3 (4.8-10.8)
[2023-03-20 01:35] LABS: Appearance Urine Cloudy (Clear); Bilirubin Urine Negative (Negative); Blood Urine 1+ (Negative); Color Urine Yellow (Yellow); Glucose Urine UA Negative (Negative); Ketones Urine Trace (Negative); Leukocyte Esterase Ur 1+ LEU/UL (Negative); Nitrate Urine Negative (Negative); Protein Urine 3+ (Negative); Specific Grav Ur >= 1.030 (1.010-1.020); Urobilinogen Urine 0.2 mg/dL (0.2-1.0); pH Urine 5.5 (5.0-8.0)
[2023-03-20 01:41] LABS: Add Urine Microscopic? YES; Squamous Epithelial Cell Urine Many /hpf (Few); WBC Urine 16-20 /hpf (0-3)
[2023-03-20 01:42] LABS: Amorphous Sediment Urine Few; Bacteria Urine 1+ /hpf; Mucus Urine Few /lpf
[2023-03-20 01:52] LABS: Lactic Acid Reflex 2.8 mmol/L (0.4-2.0)
[2023-03-20 01:55] VITALS: BP 136/70
[2023-03-20 01:57] LABS: Alanine Aminotransferase 48 U/L (14-59); Albumin Level 4.1 g/dL (3.4-5.0); Alkaline Phosphatase 147 U/L (46-116); Anion Gap 14 mmol/L (8-16); Aspartate Amino Transferase 18 U/L (15-37); Bilirubin,Total 0.5 mg/dL (0.00-1.00); Blood Urea Nitrogen 23 mg/dL (7-18); Carbon Dioxide 25 mmol/L (21-32); Chloride 100 mmol/L (98-108); Estimated CRCL calculation 51 ml/min; Estimated Glomerular Filt Rate 55; Glucose 185 mg/dL (70-99); Osmolality Calculated 296 mOsm/kg (285-295); Potassium 3.8 mmol/L (3.5-5.1); Sodium 139 mmol/L (136-145); Total Protein 8.5 g/dL (6.4-8.2)
[2023-03-20 01:58] LABS: Lipase 25 U/L (16-77); Troponin I 4.2 ng/L (0.00-60.4)
[2023-03-20 02:47] VITALS: PULSE 106
[2023-03-20] MEDS: HYDROmorphone HCL INJ (*CRX) 2 MG/ML VIAL 0.5 MG IV PUSH (03:04)
[2023-03-20] MEDS: PROCHLORPERAZINE EDISYLATE 10 MG/2 ML VIAL IV PUSH (03:04)
[2023-03-20 04:29] LABS: Reflex Lactic Acid Yes or No Add Lactic
[2023-03-20 05:05] LABS: Lactic Acid 1.3 mmol/L (0.4-2.0)
[2023-03-20] MEDS: CIPROFLOXACIN 250 MG TABLET PO (06:10)
[2023-03-20] MEDS: HYDROcodone/acetaminophen (*CRX) 5-325 MG TABLET 1 TAB PO (06:11)
[2023-03-20 06:34] VITALS: BP 136/89; PULSE 96; RESP 16; TEMP 36.2; O2SAT 98
--- NOTE | 2023-03-22 12:43 | PC.NURSE ---
reviewed urine culture. no action needed
== END 2023-03-20 06:39 | disposition home or self-care (01) ==
PROVIDERS: Emergency Provider Internal Medicine Critical Care Medicine; PCP Family Medicine
DX: M54.9 Dorsalgia, unspecified (principal); R10.84 Generalized abdominal pain; I10 Essential (primary) hypertension; Z87.891 Personal history of nicotine dependence; W19.XXXA Unspecified fall, initial encounter
CPT/HCPCS: 36415; 72128; 72131; 74177; 80053; 81001; 83605; 83690; 84484; 85025; 87086; 87088; 96361; 96374; 96375; 99284; A9270; J0780; J1170; J7120; Q9967

== ENCOUNTER 2023-03-25 12:00 | Outpatient (CLI) | payer MEDICARE, OTHER, SELFPAY ==
[2023-03-25 12:22] LABS: Basophils Absolute Auto 0.04 K/mm3 (0.00-0.10); Basophils Percent Auto 0.4 % (0.0-1.0); Eosinophils Absolute Auto 0.09 K/mm3 (0.02-0.50); Eosinophils Percent Auto 0.9 % (1.0-6.0); Hematocrit 48.8 % (35.0-49.0); Hemoglobin 16.3 g/dL (12.0-15.0); Immature Granulocyte Absolute 0.04 K/mm3 (0.00-0.00); Immature Granulocyte Percent A 0.4 % (0.0-0.0); Lymphocytes Absolute Auto 1.93 K/mm3 (1.10-4.50); Lymphocytes Percent Auto 18.8 % (18.0-42.0); Mean Corpuscular HGB Conc 33.4 g/dL (32.0-36.0); Mean Corpuscular Hemoglobin 29.5 pg (27.0-31.0); Mean Corpuscular Volume 88.4 fL (78.0-102.0); Mean Platelet Volume 9.7 fl (9.2-11.8); Monocytes Absolute Auto 0.62 K/mm3 (0.10-0.90); Neutrophils Absolute Auto 7.6 K/mm3 (1.7-7.2); Neutrophils Percent Auto 73.5 % (50.0-70.0); Platelet Count Result 334 K/mm3 (150-420); Red Blood Count 5.52 M/mm3 (4.20-5.40); Red Cell Distribution Width 12.1 % (11.6-14.4); White Blood Count 10.3 K/mm3 (4.8-10.8)
[2023-03-25 12:23] LABS: Appearance Urine Clear (Clear); Bilirubin Urine Negative (Negative); Blood Urine Negative (Negative); Color Urine Yellow (Yellow); Glucose Urine UA Negative (Negative); Ketones Urine Negative (Negative); Leukocyte Esterase Ur Negative (Negative); Nitrate Urine Negative (Negative); Protein Urine Trace (Negative); Specific Grav Ur >= 1.030 (1.010-1.020); Urobilinogen Urine 0.2 mg/dL (0.2-1.0); pH Urine 5.5 (5.0-8.0)
[2023-03-25 12:38] LABS: Add Urine Microscopic? YES; Bacteria Urine 1+ /hpf; Mucus Urine Moderate /lpf; RBC Urine None seen /hpf (0-2); Squamous Epithelial Cell Urine Rare /hpf (Few); WBC Urine None seen /hpf (0-3)
[2023-03-25 13:06] LABS: Alanine Aminotransferase 63 U/L (14-59); Albumin Level 4.2 g/dL (3.4-5.0); Alkaline Phosphatase 156 U/L (46-116); Amylase 97 U/L (25-115); Anion Gap 12 mmol/L (8-16); Aspartate Amino Transferase 20 U/L (15-37); Bilirubin,Total 0.6 mg/dL (0.00-1.00); Blood Urea Nitrogen 12 mg/dL (7-18); Calcium 9.6 mg/dL (8.5-10.1); Carbon Dioxide 25 mmol/L (21-32); Chloride 102 mmol/L (98-108); Estimated Glomerular Filt Rate > 60; Glucose 108 mg/dL (70-99); Lipase 58 U/L (16-77); Osmolality Calculated 288 mOsm/kg (285-295); Potassium 4.2 mmol/L (3.5-5.1); Sodium 139 mmol/L (136-145); Total Protein 8.2 g/dL (6.4-8.2)
== END 2023-03-25 12:01 | disposition home or self-care (01) ==
LOC: CHSLAB 12:03
PROVIDERS: PCP Family Medicine; Visit Provider Family Medicine
DX: R10.9 Unspecified abdominal pain (principal); R50.9 Fever, unspecified; R82.81 Pyuria
CPT/HCPCS: 36415; 80053; 81001; 82150; 83690; 85025; 87040; 87086

== ENCOUNTER 2023-10-31 07:30 | Outpatient (CLI) | payer MEDICARE, OTHER, SELFPAY ==
[2023-10-31 07:53] LABS: Basophils Absolute Auto 0.05 K/mm3 (0.00-0.10); Basophils Percent Auto 0.7 % (0.0-1.0); Eosinophils Absolute Auto 0.13 K/mm3 (0.02-0.50); Eosinophils Percent Auto 1.8 % (1.0-6.0); Hematocrit 39.1 % (35.0-42.0); Hemoglobin 12.9 g/dL (11.7-13.8); Immature Granulocyte Absolute 0.02 K/mm3 (0.00-0.00); Immature Granulocyte Percent A 0.3 % (0.0-0.0); Lymphocytes Absolute Auto 1.99 K/mm3 (1.10-4.50); Lymphocytes Percent Auto 27.1 % (18.0-42.0); Mean Corpuscular Hemoglobin 28.9 pg (27.0-31.0); Mean Corpuscular Volume 87.7 fL (78.0-102.0); Mean Platelet Volume 9.5 fl (9.2-11.8); Monocytes Absolute Auto 0.57 K/mm3 (0.10-0.90); Monocytes Percent Auto 7.8 % (2.0-11.0); Neutrophils Absolute Auto 4.59 K/mm3 (1.70-7.20); Neutrophils Percent Auto 62.3 % (50.0-70.0); Platelet Count Result 266 K/mm3 (150-420); Red Blood Count 4.46 M/mm3 (4.20-5.40); Red Cell Distribution Width 12.9 % (11.6-14.4); White Blood Count 7.4 K/mm3 (4.8-10.8)
[2023-10-31 07:54] LABS: Appearance Urine Clear (Clear); Bilirubin Urine Negative (Negative); Blood Urine Negative (Negative); Color Urine Light Yellow (Yellow); Glucose Urine UA Negative (Negative); Ketones Urine Negative (Negative); Leukocyte Esterase Ur Negative (Negative); Nitrate Urine Negative (Negative); Protein Urine Negative (Negative); Specific Grav Ur >= 1.030 (1.010-1.020); Urobilinogen Urine 0.2 mg/dL (0.2-1.0); pH Urine 5.5 (5.0-8.0)
[2023-10-31 08:06] LABS: Add Urine Microscopic? NO
[2023-10-31 08:53] LABS: Alanine Aminotransferase 73 U/L (14-59); Albumin Level 3.4 g/dL (3.4-5.0); Alkaline Phosphatase 111 U/L (46-116); Anion Gap 9 mmol/L (4-12); Aspartate Amino Transferase 28 U/L (15-37); Bilirubin,Total 0.2 mg/dL (0.00-1.00); Blood Urea Nitrogen 19 mg/dL (7-18); Calcium 9.1 mg/dL (8.5-10.1); Carbon Dioxide 30 mmol/L (21-32); Chloride 102 mmol/L (98-108); Cholesterol 215 mg/dL (0-200); Estimated Glomerular Filt Rate > 60; Glucose 90 mg/dL (70-99); HDL Direct 56 mg/dL (40-60); LDL Cholesterol Calculated 140 mg/dL (<130); Osmolality Calculated 294 mOsm/kg (285-295); Potassium 4.4 mmol/L (3.5-5.1); Sodium 141 mmol/L (136-145); Total Protein 6.7 g/dL (6.4-8.2); Triglycerides 94 mg/dL (0-150)
[2023-10-31 13:52] LABS: Free T4 Free Thyroxine 1.02 ng/dL (0.76-1.46)
[2023-11-01 17:22] LABS: Microalbumin Urine Random < 13.0 mg/L
[2023-11-01 17:23] LABS: Creatinine Urine 35.23 mg/dL (40-278); MALB Creatinine Ratio 36.9 mg/g (0-30)
== END 2023-10-31 07:31 | disposition home or self-care (01) ==
PROVIDERS: PCP Family Medicine; Visit Provider Family Medicine
DX: I10 Essential (primary) hypertension (principal)
CPT/HCPCS: 36415; 80053; 80061; 81003; 82043; 84439; 84443; 85025

== ENCOUNTER 2024-01-21 09:46 | Outpatient (CLI) | payer MEDICARE, OTHER, SELFPAY ==
--- NOTE | ~2024-01-21 | CT_ITS ---
EXAMINATION:CT lung screening DATE: 01/21/2024 10:10 INDICATION: Personal history of nicotine dependence. Smoker who quit 8 years ago with 46 pack year hi story. TECHNIQUE: Computed tomography (CT) of the chest was performed without intravenous contrast. Automate d exposure control and iterative reconstruction technique were employed. The dose-length product (DLP ) was 96.22 mGy-cm. COMPARISON: Chest CT 01/04/2021 FINDINGS: Calcified pulmonary nodules and calcified hilar mediastinal lymph nodes are consistent with old granulomatous disease. There is mild atelectasis bilaterally. There is a pneumatocele left upper lobe. No pleural effusion. The heart size is normal. There are coronary artery calcifications. No pe ricardial effusion. Calcifications in the spleen are consistent with old granulomatous disease. There is moderate thoracic spondylosis. IMPRESSION: 1. Lung-RADS category 1: Negative. Continue annual screening with noncontrast low-dose chest CT in 12 months. Reviewed, dictated and finalized at location A. IMPRESSION: 1. Lung-RADS category 1: Negative. Continue annual screening with noncontrast l ow-dose chest CT in 12 months.
[2024-01-21 10:19] LABS: Basophils Absolute Auto 0.04 K/mm3 (0.00-0.10); Basophils Percent Auto 0.7 % (0.0-1.0); Eosinophils Percent Auto 1.7 % (1.0-6.0); Hematocrit 44.7 % (35.0-42.0); Hemoglobin 14.5 g/dL (11.7-13.8); Immature Granulocyte Absolute 0.02 K/mm3 (0.00-0.00); Immature Granulocyte Percent A 0.3 % (0.0-0.0); Lymphocytes Absolute Auto 1.38 K/mm3 (1.10-4.50); Lymphocytes Percent Auto 22.9 % (18.0-42.0); Mean Corpuscular HGB Conc 32.4 g/dL (32-36); Mean Corpuscular Hemoglobin 28.7 pg (27.0-31.0); Mean Corpuscular Volume 88.3 fL (78.0-102.0); Mean Platelet Volume 9.6 fl (9.2-11.8); Monocytes Absolute Auto 0.41 K/mm3 (0.10-0.90); Monocytes Percent Auto 6.8 % (2.0-11.0); Neutrophils Absolute Auto 4.08 K/mm3 (1.70-7.20); Neutrophils Percent Auto 67.6 % (50.0-70.0); Platelet Count Result 269 K/mm3 (150-420); Red Blood Count 5.06 M/mm3 (4.20-5.40); Red Cell Distribution Width 13.1 % (11.6-14.4)
[2024-01-21 11:13] LABS: Alanine Aminotransferase 29 U/L (14-59); Albumin Level 3.5 g/dL (3.4-5.0); Alkaline Phosphatase 125 U/L (46-116); Anion Gap 8 mmol/L (4-12); Aspartate Amino Transferase 14 U/L (15-37); Bilirubin,Total 0.3 mg/dL (0.00-1.00); Blood Urea Nitrogen 11 mg/dL (7-18); Carbon Dioxide 29 mmol/L (21-32); Chloride 104 mmol/L (98-108); Estimated Glomerular Filt Rate > 60; Free T4 Free Thyroxine 0.91 ng/dL (0.76-1.46); Glucose 84 mg/dL (70-99); Osmolality Calculated 290 mOsm/kg (285-295); Sodium 141 mmol/L (136-145); Thyroid Stimulating Hormone 3.66 uIU/mL (0.36-3.74); Total Protein 7.2 g/dL (6.4-8.2)
== END 2024-01-21 09:47 | disposition home or self-care (01) ==
LOC: CHSIMG 09:49
PROVIDERS: PCP Family Medicine; Visit Provider Family Medicine
DX: I10 Essential (primary) hypertension (principal); R94.6 Abnormal results of thyroid function studies; Z12.2 Encounter for screening for malignant neoplasm of respiratory organs; Z87.891 Personal history of nicotine dependence
CPT/HCPCS: 36415; 71271; 80053; 84439; 84443; 85025

== ENCOUNTER 2024-03-30 09:24 | Outpatient (CLI) | payer MEDICARE, SELFPAY ==
[2024-03-30 09:48] LABS: Basophils Absolute Auto 0.05 K/mm3 (0.00-0.10); Basophils Percent Auto 0.8 % (0.0-1.0); Eosinophils Percent Auto 1.6 % (1.0-6.0); Hemoglobin 14.9 g/dL (11.7-13.8); Immature Granulocyte Absolute 0.02 K/mm3 (0.00-0.00); Immature Granulocyte Percent A 0.3 % (0.0-0.0); Lymphocytes Absolute Auto 1.14 K/mm3 (1.10-4.50); Lymphocytes Percent Auto 18.7 % (18.0-42.0); Mean Corpuscular HGB Conc 33.1 g/dL (32-36); Mean Corpuscular Volume 87.5 fL (78.0-102.0); Mean Platelet Volume 9.5 fl (9.2-11.8); Monocytes Absolute Auto 0.38 K/mm3 (0.10-0.90); Monocytes Percent Auto 6.2 % (2.0-11.0); Neutrophils Percent Auto 72.4 % (50.0-70.0); Platelet Count Result 261 K/mm3 (150-420); Red Blood Count 5.14 M/mm3 (4.20-5.40); Red Cell Distribution Width 12.7 % (11.6-14.4); White Blood Count 6.1 K/mm3 (4.8-10.8)
[2024-03-30 09:51] LABS: Add Urine Microscopic? NO; Appearance Urine Clear (Clear); Bilirubin Urine Negative (Negative); Blood Urine Negative (Negative); Color Urine Light Yellow (Yellow); Glucose Urine UA Negative (Negative); Ketones Urine Negative (Negative); Leukocyte Esterase Ur Negative LEU/UL (Negative); Nitrate Urine Negative (Negative); Protein Urine Negative (Negative); Urobilinogen Urine 0.2 mg/dL (0.2-1.0)
[2024-03-30 10:38] LABS: Alanine Aminotransferase 65 U/L (14-59); Albumin Level 3.8 g/dL (3.4-5.0); Alkaline Phosphatase 123 U/L (46-116); Amylase 127 U/L (25-115); Anion Gap 5 mmol/L (4-12); Aspartate Amino Transferase 25 U/L (15-37); Bilirubin,Total 0.4 mg/dL (0.00-1.00); Blood Urea Nitrogen 10 mg/dL (7-18); Calcium 9.3 mg/dL (8.5-10.1); Carbon Dioxide 32 mmol/L (21-32); Chloride 100 mmol/L (98-108); Estimated Glomerular Filt Rate > 60; Glucose 96 mg/dL (70-99); Lipase 182 U/L (16-77); Osmolality Calculated 283 mOsm/kg (285-295); Potassium 4.1 mmol/L (3.5-5.1); Sodium 137 mmol/L (136-145); Total Protein 7.5 g/dL (6.4-8.2)
== END 2024-03-30 09:25 | disposition home or self-care (01) ==
PROVIDERS: PCP Family Medicine; Visit Provider Family Medicine
DX: K42.9 Umbilical hernia without obstruction or gangrene (principal)
CPT/HCPCS: 36415; 80053; 81003; 82150; 83690; 85025

== ENCOUNTER 2024-04-01 07:23 | Outpatient (CLI) | payer MEDICARE, OTHER, SELFPAY ==
--- NOTE | ~2024-04-01 | US_ITS ---
US soft tissue abdomen 04/01/2024 08:27 Indication: Umbilical hernia Procedure: Protrusion. Umbilical pain with nausea. Comparison: High-resolution Limited ultrasound of the umbilicus Findings: There is heterogeneous shadowing soft tissue extending to the superficial muscle layer. No motility identified. No abnormal fluid collection. Impression: 1: Heterogeneous nonmobile soft tissue extending to the muscular layer, suspicious for umbilical yue ia. Consider correlation with CT. Reviewed, dictated and finalized at location B. Impression: 1: Heterogeneous nonmobile soft tissue extending to the muscular layer, suspici ous for umbilical hernia. Consider correlation with CT.
--- NOTE | ~2024-04-01 | MR_ITS ---
MRI of the lumbar spine Clinical History: Back pain and right-sided sciatica Technique: Following intravenous administration of 18 cc MultiHance gadolinium, T1-weighted fat-sat i maging was performed in the axial and sagittal planes. Findings: No definite fracture or subluxation identified. There is anterior and interbody fusion from L5 to S1, with associated hardware and artifact. There is suspected moderate to advanced central canal stenosis at L4-L5 with probable facet arthropat hy and ligamentum flavum hypertrophy. Remaining lumbar levels appear essentially unremarkable on limi frank sequences available. No suspicious postcontrast enhancement identified. Impression: No abnormal postcontrast enhancement. Suspected moderate to severe central canal stenosis at L4-L5, as noted above. Noncontrast lumbar spin e MR should be considered to further evaluate, as this exam is limited with only 2 postcontrast seque nces performed. Prior anterior and interbody fusion from L5 to S1. Reviewed, dictated and finalized at [facility]. Impression: No abnormal postcontrast enhancement. Suspected moderate to severe central canal stenosis at L4-L5, as noted above. N oncontrast lumbar spine MR should be considered to further evaluate, as this ex am is limited with only 2 postcontrast sequences performed. Prior anterior and interbody fusion from L5 to S1.
== END 2024-04-01 07:24 | disposition home or self-care (01) ==
PROVIDERS: PCP Family Medicine; Visit Provider Family Medicine
DX: M54.41 Lumbago with sciatica, right side (principal); K42.9 Umbilical hernia without obstruction or gangrene; M48.061 Spinal stenosis, lumbar region without neurogenic claudication; Z98.1 Arthrodesis status
CPT/HCPCS: 72149; 76705; A9577

== ENCOUNTER 2024-04-08 06:54 | Outpatient (CLI) | payer MEDICARE, OTHER, SELFPAY ==
--- NOTE | ~2024-04-08 | MR_ITS ---
MRI of the lumbar spine Clinical History: Canal stenosis Technique: Axial T2-weighted images, and sagittal T1-weighted, T2-weighted, and T2 fat-sat images wer e acquired. Findings: There is anterior and interbody fusion from L5 to S1, with associated hardware and suscepti bility artifact. No fracture or subluxation evident. No bone marrow signal abnormality evident. At L1-L2, L2-L3, L3-L4, there is no disc bulge or herniation. No spinal canal stenosis or neural fora zakiya narrowing at these levels. There is moderate facet arthropathy, especially at L3-L4. At L4-L5, there is mild disc bulge and severe facet arthropathy, with mild to moderate central canal stenosis. There is mild right neural foraminal narrowing. Left neural foramen may be minimally narrow ed as well. At L5-S1, there is no [place] canal stenosis or neural foraminal narrowing. Paravertebral soft tissues are unremarkable. Impression: Mild to moderate degenerative spondylosis overall L4-L5, as detailed above. Anterior and interbody fusion from L5 to S1. Reviewed, dictated and finalized at [facility]. Impression: Mild to moderate degenerative spondylosis overall L4-L5, as detailed above. Anterior and interbody fusion from L5 to S1.
--- NOTE | ~2024-04-08 | CT_ITS ---
Non-contrast CT scan of the Abdomen and Pelvis Clinical indication: Elevated pancreatic enzymes Technique: 2.5 mm axial scans were obtained through the abdomen and pelvis without intravenous or or al contrast. Dose reduction technique was used on this scan by utilizing automated exposure control a nd iterative reconstruction technique. The dose-length product (DLP) was 963.29 mGy-cm. COMPARISON: 03/20/2023 Findings: Images through the lung bases reveal calcified subcarinal and left hilar lymph nodes and c alcified granulomas. Large pulmonary cyst present in the left upper lobe. Nonobstructing left renal stones measuring up to 6 mm in diameter. No right renal stone. No ureteral stone or hydronephrosis on either side. The liver, pancreas, gallbladder, and adrenals appear normal. Calcified splenic granulomas are presen t. There are atherosclerotic calcifications of the aorta. . There is no evidence of bowel obstruction. Small fat-containing ventral hernias are present at the va dline, one superior to the umbilicus, one inferior. Additional small fat-containing umbilical hernia also present. Images through the pelvis were performed. There is no evidence of ascites or lymphadenopathy. Urinary bladder unremarkable. No adnexal mass seen. Impression: Nonobstructing left nephrolithiasis, as detailed above. Small fat-containing umbilical hernia. Additional small ventral fat-containing hernias in the midline, one above the umbilicus, one below. T hese are stable from prior exam. Reviewed, dictated and finalized at [facility]. Impression: Nonobstructing left nephrolithiasis, as detailed above. Small fat-containing umbilical hernia. Additional small ventral fat-containing hernias in the midline, one above the u mbilicus, one below. These are stable from prior exam.
== END 2024-04-08 06:55 | disposition home or self-care (01) ==
LOC: CHSIMG 06:57
PROVIDERS: PCP Family Medicine; Visit Provider Family Medicine
DX: K42.9 Umbilical hernia without obstruction or gangrene (principal); R74.8 Abnormal levels of other serum enzymes; M43.06 Spondylolysis, lumbar region; Z98.1 Arthrodesis status; N20.0 Calculus of kidney; K43.9 Ventral hernia without obstruction or gangrene
CPT/HCPCS: 72148; 74176

== ENCOUNTER 2024-07-26 13:49 | Outpatient (CLI) | payer MEDICARE, SELFPAY ==
[2024-07-26 14:07] LABS: Basophils Absolute Auto 0.03 K/mm3 (0.00-0.10); Basophils Percent Auto 0.6 % (0.0-1.0); Eosinophils Absolute Auto 0.15 K/mm3 (0.02-0.50); Eosinophils Percent Auto 2.9 % (1.0-6.0); Hematocrit 37.3 % (35.0-42.0); Hemoglobin 12.7 g/dL (11.7-13.8); Immature Granulocyte Absolute 0.02 K/mm3 (0.00-0.00); Immature Granulocyte Percent A 0.4 % (0.0-0.0); Lymphocytes Absolute Auto 1.11 K/mm3 (1.10-4.50); Lymphocytes Percent Auto 21.7 % (18.0-42.0); Mean Corpuscular Hemoglobin 29.1 pg (27.0-31.0); Mean Corpuscular Volume 85.6 fL (78.0-102.0); Mean Platelet Volume 9.4 fl (9.2-11.8); Monocytes Absolute Auto 0.44 K/mm3 (0.10-0.90); Monocytes Percent Auto 8.6 % (2.0-11.0); Neutrophils Absolute Auto 3.36 K/mm3 (1.70-7.20); Neutrophils Percent Auto 65.8 % (50.0-70.0); Platelet Count Result 231 K/mm3 (150-420); Red Blood Count 4.36 M/mm3 (4.20-5.40); Red Cell Distribution Width 12.8 % (11.6-14.4); White Blood Count 5.1 K/mm3 (4.8-10.8)
[2024-07-26 14:42] LABS: Alanine Aminotransferase 44 U/L (14-59); Albumin Level 3.1 g/dL (3.4-5.0); Alkaline Phosphatase 103 U/L (46-116); Anion Gap 5 mmol/L (4-12); Aspartate Amino Transferase 19 U/L (15-37); Bilirubin,Total 0.5 mg/dL (0.00-1.00); Blood Urea Nitrogen 10 mg/dL (7-18); Calcium 8.7 mg/dL (8.5-10.1); Carbon Dioxide 31 mmol/L (21-32); Chloride 105 mmol/L (98-108); Estimated Glomerular Filt Rate > 60; Glucose 104 mg/dL (70-99); Osmolality Calculated 291 mOsm/kg (285-295); Potassium 4.2 mmol/L (3.5-5.1); Sodium 141 mmol/L (136-145); Total Protein 6.2 g/dL (6.4-8.2)
== END 2024-07-26 13:50 | disposition home or self-care (01) ==
LOC: CHSLAB 13:51
PROVIDERS: PCP Family Medicine; Visit Provider Family Medicine
DX: I10 Essential (primary) hypertension (principal)
CPT/HCPCS: 36415; 80053; 85025

== ENCOUNTER 2024-09-24 10:16 | Outpatient (CLI) | payer MEDICARE, SELFPAY | END 2024-09-24 10:17 | disposition home or self-care (01) | LOC: CHSIMG 10:17 | PROVIDERS: PCP Family Medicine; Visit Provider Family Medicine | DX: R05.1 Acute cough (principal) | CPT/HCPCS: 71046 ==

== ENCOUNTER 2025-02-18 07:43 | Outpatient (CLI) | payer MEDICARE, OTHER, SELFPAY ==
--- OUTSIDE RECORDS SUMMARY | 2025-02-18 07:47 | XMS_ITS | Clinical Summary ---
Author Organization [facility] [employer] Address [address] [place] [address] Care Team Providers Care Revenue Field Auditor Name Role Phone Payam Mello MD Primary Care Provider [phone] Source Comments [facility] [employer],non-owned Affiliates and Associated Physician Practices is amultiple site organization consisting of ambulatory clinics and hospital sitesin [place], [place], [place] and [place]. This disclosure is being madepursuant to the Care Everywhere program and may not contain all information available regarding this patient. Last updated 18.[facility] [employer] Allergies No known active allergies Medications * Be aware that medications may not be up to date on this document. Alwaysverify current medications with the patient. meloxicam (MOBIC) 15 MG tablet 04/20/2015 Active morphine CR 12hr (MS CONTIN) 15 MG tablet 05/02/2015 Active oxyCODONE-aceta minophen (PERCOCET) 5-325 MG tablet 04/28/2015 Act griselda ibuprofen (MOTRIN) 800 MG tablet 05/26/2015 Active amitriptyline (ELAVIL) 10 MG tablet Take 10 mg by mouth at bedtime Active Family History Medical History Relation Name Comments Cancer Father Arthritis Mother Arthritis Sister Neuropathy Sister Relation Name Status Comments Father Mother Sister Social History Tobacco Use Types Packs/Day Years Used Date Smoking Tobacco: Every Day Cigarettes 0.5 30 Tobacco Cessation:Ready to Q uit: No; Counseling Given: Yes Alcohol Use Standard Drinks/Week Comments No 0 (1 standard drink = 0.6 oz pur e alcohol) Comments No Sex and Gender Information Value Date Recorded Sex Assigned at Not on file Legal Sex Female 11:00 AM CDT Gender Identity Not on file Sexual Orientation Not on file Last Filed Vital Signs Vital Sign Reading Time Taken Comments Blood Pressure 143/90 07/03/2015 12:01 PM WIDE AREA NETWORK ADMINISTRATOR Pulse 99 07/03/2015 12:01 PM WIDE AREA NETWORK ADMINISTRATOR Temperature 36.8 C (98.2 F) 07/03/2015 12:01 PM WIDE AREA NETWORK ADMINISTRATOR Respiratory Rate 16 07/03/2015 12:01 PM WIDE AREA NETWORK ADMINISTRATOR Oxygen Saturation 100% 07/03/2015 12:01 PM WIDE AREA NETWORK ADMINISTRATOR Inhaled Oxygen Concentration - - Weight 70.8 kg (156 lb) 07/03/2015 12:01 PM WIDE AREA NETWORK ADMINISTRATOR Height 160 cm (5' 3) 07/03/2015 12:01 PM WIDE AREA NETWORK ADMINISTRATOR Body Mass Index 27.63 07/03/2015 12:01 PM WIDE AREA NETWORK ADMINISTRATOR Plan of Treatment Health Maintenance Due Date Last Done Comments BONE DENSITY TESTING 1960 COLOGUARD (AGES 45-75) - COL ON CA SCREENING 1958 COLON MONITORING 1958 COLONOSCOPY - COLON CA SCREENING 1958 CT COLONOGRAPHY - COLON CA SCREENING 1958 Colorectal Cancer Screening 1958 FIT - COLON CA SCREENING 1958 FLEX SIG - COLON CA SCREENING 1958 LIPID TESTING 1958 MAMMOGRAM 1958 HEPATITIS C SCREENING 04/25/1976 DTAP/TDAP/TD VACCINES (1 - Tdap) 1977 PNEUMOCOCCAL VACCINE 50+ (1 of 1 - PCV) 2008 ZOSTER VACCINE (1 of 2) 2008 COVID-19 VACCINE (1 - 2023-2 5 season) 2024 DEPRESSION SCREENING 07/28/2024 INFLUENZA VACCINE (#1) 2025 Respiratory Syncytial Virus (RSV) Vaccine Pt: or over 60 yrs (1 - 1-dose 75+ series) 2033 HEPATITIS B VACCINE Aged Out No longe r eligible based on patient's age to complete this topic HIB VACCINE Aged Out No longer eligi ble based on patient's age to complete this topic HPV VACCINE Aged Out No longer eligi ble based on patient's age to complete this topic MENINGOCOCCAL (Group B) VACC INE SHARED DECISION-MAKING Aged Out No longer eligibl e based on patient's age to complete this topic MENINGOCOCCAL GROUPS A/C/Y/W VACCINE Aged Out No longer eligible b ased on patient's age to complete this topic Insurance Care Teams Revenue Field Auditor Relationship Specialty Start Date End Date Payam Mello MD [address] [place] [address] PCP - General Family Medicine 05/24/15
--- OUTSIDE RECORDS SUMMARY | 2025-02-18 07:47 | XMS_ITS | Clinical Summary ---
Author Organization [facility] Address [address] [place] [address] Care Team Providers Care Medicaid Billing Specialist Name Role Phone Payam Mello MD Primary Care Provider [phone] Wolf Caballero MD Unavailable Allergies Active Allergy Reactions Criticality Noted Date Comments Shellfish-Derived Products Unknown 6 Tape Rash Low 11/28/2023 Medications pantoprazole EC (PROTONIX) 20 MG tablet Take 1 tablet (20 mg total) by mouth daily as needed. DIRECTED 10/09/2023 Active amitriptyline (ELAVIL) 10 MG tablet Take 1 tablet (10 mg total) by mouth nightly at bedtime. Active ondansetron (ZOFRAN) 8 MG tablet Take 1 tablet (8 mg total) by mouth every 8 (eight) hours as needed. 06/27/2023 Active Lactobacillus (ACIDOPHILUS) Cap Take 1 tablet by mouth 2 (two) times a day. 60 capsule 12/06/2023 Active lisinopril (PRINIVIL) 20 MG tablet Take 1 tablet (20 mg total) by mouth daily. Active oxyCODONE (OXY-IR) 5 MG capsule Take 1 capsule (5 mg total) by mouth every 6 (six) hours as needed. Active Active Problems Problem Noted Date Diagnosed Date Ventral hernia without obstruction or gangrene 0 04/14/2024 Abdominal pain 12/03/2023 Gastroesophageal reflux dise ase, unspecified whether esophagitis present 11/04/2023 Indigestion 11/04/2023 Bloating 11/04/2023 Nausea and vomiting, unspecified vomiting type 0 11/04/2023 Plantar fasciitis of left foot 10/29/2022 Sesamoiditis 10/29/2022 Social History Tobacco Use Types Packs/Day Years Used Date Smoking Tobacco: Former Cigarettes 0.5 26 S tarted: 1988 Smokeless Tobacco: Never Tobacco Cessation:Counseling Given: No Alcohol Use Standard Drinks/Week Comments Not Currently 0 (1 standard drink = 0.6 oz pur e alcohol) B1300 Health Literacy Answer Date Recor ded How often do you need to hav e someone help you when you read instructions, pamphlets, or other written material from your doctor or pharmacy? Never 12/03/2023 [facility] Utilities Answer Date Recorded In the past 12 months has e [employer], gas, oil, or water [employer] threatened to shut off services in your home? No 12/03/2023 Humiliation, Afraid, Rape, and Kick questionnair e Answer Date Recorded Within the last year, have y ou been afraid of your partner or ex-partner? No 12/03/2023 Within the last year, have y ou been humiliated or emotionally abused in other ways by your partner or ex-partner? No Within the last year, have y ou been kicked, hit, slapped, or otherwise physically hurt by your partner or ex-partner? No 12/03/2023 Within the last year, have y ou been raped or forced to have any kind of sexual activity by your partner or ex-partner? No 12/03/2023 Social Connection and Isolation Panel [NHANES] A nswer Date Recorded In a typical week, how many times do you talk on the phone with family, friends, or neighbors? Never 12/03/2023 How often do you get together with friends or re latives? Never 12/03/2023 How often do you attend pentecostal or evangelical serv ices? Never 12/03/2023 Do you belong to any clubs o r organizations such as pentecostal groups, unions, fraternal or athletic groups, or school groups? Yes 12/03/2023 How often do you attend meet ings of the clubs or organizations you belong to? Never 12/03/2023 Are you , , di vorced, , never , or living with a partner? 12/03/2023 Overall Financial Resource Strain (CARDIA) Answe r Date Recorded How hard is it for you to pa y for the very basics like food, housing, medical care, and heating? Not hard at all 12/03/2023 [facility] [place] of Occupat ional Health - Occupational Stress Questionnaire Answer Date Recorded Do you feel stress - tense, restless, nervous, or anxious, or unable to sleep at night because your mind is troubled all the time - these days? Not at all 12/03/2023 Hunger Vital Sign Answer Date Recorded Within the past 12 months, y ou worried that your food would run out before you got the money to buy more. Never true 12/03/19 24 Within the past 12 months, t he food you bought just didn't last and you didn't have money to get more. Never true 12/03/2023 PRAPARE - Transportation Answer Date Re corded In the past 12 months, has l ack of transportation kept you from medical appointments or from getting medications? No 02/2024 In the past 12 months, has l ack of transportation kept you from meetings, work, or from getting things needed for daily living? No 12/03/2023 Housing Stability Vital Sign Answer Thomas e Recorded In the last 12 months, was t here a time when you were not able to pay the mortgage or rent on time? Patient unable to answer 12/03/2023 In the past 12 months, how m any times have you moved where you were living? 1 12/03/2023 At any time in the past 12 m [facility], were you homeless or living in a alf (including now)? No 12/03/2023 Comments No Sex and Gender Information Value Date Recorded Sex Assigned at Not on file Legal Sex Female 6:10 PM CDT Gender Identity Not on file Sexual Orientation Not on file Last Filed Vital Signs Vital Sign Reading Time Taken Comments Blood Pressure 160/99 05/12/2024 10:28 AM CDT Pulse 101 05/12/2024 10:28 AM CDT Temperature 36.6 C (97.8 F) 05/11/2024 11:58 AM CDT Respiratory Rate 14 05/12/2024 10:28 AM CDT Oxygen Saturation 97% 05/12/2024 10:28 AM CDT Inhaled Oxygen Concentration - - Weight 87.5 kg (193 lb) 05/12/2024 10:28 AM CDT Height 157.5 cm (5' 2) 05/12/2024 10:28 AM CDT Body Mass Index 35.3 05/12/2024 10:28 AM CDT Plan of Treatment Health Maintenance Due Date Last Done Comments Hepatitis C 1976 Mammogram Screening 1998 Pneumococcal Vaccine: 50+ Years (1 of 1 - PCV) 2008 1958 Zoster Vaccines (1 of 2) 2008 Annual Medicare Wellness Visit 2023 Dexa Scan (General) 2023 COVID-19 Vaccine ( - 2023-2 5 season) 2024 PHQ-2 (Physician [place]) 07/28/2024 DTaP, Tdap and Td Vaccines ( 2 - Td or Tdap) 01/27/2030 01/28/2020 RSV Immunization or 60+ Years (1 - 1-dose 75+ series) 2033 Colorectal Cancer Screening Colonoscopy (10 Years) 12/01/2033 12/02/2023, Meningococcal B Vaccine Aged Out No l onger eligible based on patient's age to complete this topic Meningococcal Vaccine Aged Out No cyrus quoc eligible based on patient's age to complete this topic RSV Immunizations Under 20 Months Aged Out No longer eligible b ased on patient's age to complete this topic Medical Devices Implanted Type Area Certified Detention Deputy Device Identifier Shelf Expiration Date Model / Serial / Lot Mesh Symbotex [id number] - [id number] Implanted:Qty: 1 on 04/22/2024 by Cornelius James MD at [facility] Mesh N/A: Abdomen [employer] [id number] 08/27/2028 [id number] / / [id number] Procedures Procedure Name Priority Date/Time Associated Diagnosis Comments COLONOSCOPY Routine OFFICE COMMUNICATION PROFESSOR from Last 3 Months or Most Recently Relevant to Health Maintenance Results * Colonoscopy ( OFFICE COMMUNICATION PROFESSOR) Narrative [employer] TO EPIC CONVERSION - OFFICE COMMUNICATION PROFESSOR Documented hx of procedure Procedure Note Halina Elliott MD - 05/31/2018 Documented hx of procedure us Generic Conversion Md ELLIOTT GI PROCEDURE ORDERABLES Final Result [employer] TO EPIC CONVERSION from Last 3 Months or Most Recently Relevant to Health Maintenance Insurance MEDICARE [facility] Advance Directives * Full Code (Latest Code Status on File) Date Activated Date Inactivated Comments 12/03/2023 3:11 PM 12/06/2023 2:01 PM Care Teams Medicaid Billing Specialist Relationship Specialty Start Date End Date Payam Mello MD [address] [place] [address] PCP - General FAMILY PRACTICE 10/11/22 [place] [address] [place] [address] Consulting Physician GASTROENTEROLOGY 12/03/23
--- OUTSIDE RECORDS SUMMARY | 2025-02-18 07:47 | XMS_ITS | Clinical Summary ---
Author Organization [facility] Address [address] [place] [address] Care Team Providers Care Counter Checker Name Role Phone Unavailable Primary Care Provider Unavailabl e Allergies No known active allergies Medications oxyCODONE-acetam inophen (PERCOCET) 5-325 mg tablet Take 1 Tablet by mouth every 4 hours as needed for Pain, Moderate. Active morphine (MS CONTIN) 15 mg Controlled Release tablet Take 1 Tablet (15 mg) by mouth every 12 hours. Max Daily Amount: 30 mg 14 Tablet 0 05/02/2015 Active Active Problems Problem Noted Date Diagnosed Date DDD (degenerative disc disease), lumbar 05/02/20 15 Chronic low back pain 05/02/2015 Overweight (BMI 25.0-29.9) 05/02/2015 Smoker 05/02/2015 History of lumbar surgery 05/02/2015 S/P arthroscopic surgery of left knee 05/02/2015 Chronic narcotic dependence 05/02/2015 Family History Medical History Relation Name Comments Cancer Father lymphoma Hypertension Mother Osteoporosis Mother Relation Name Status Comments Father Mother Alive Social History Tobacco Use Types Packs/Day Years Used Date Smoking Tobacco: Every Day Cigarettes 0.5 30 Smokeless Tobacco: Never Alcohol Use Standard Drinks/Week Comments No 0 (1 standard drink = 0.6 oz pur e alcohol) Comments Unknown Sex and Gender Information Value Date Recorded Sex Assigned at Not on file Legal Sex Female 2:09 PM CDT Gender Identity Not on file Sexual Orientation Not on file Last Filed Vital Signs Vital Sign Reading Time Taken Comments Blood Pressure 110/68 05/02/2015 3:12 PM CDT Pulse 120 05/02/2015 3:12 PM CDT Temperature - - Respiratory Rate - - Oxygen Saturation 97% 05/02/2015 3:12 PM CDT Inhaled Oxygen Concentration - - Weight 69.9 kg (154 lb) 05/02/2015 3:12 PM CDT Height 160 cm (5' 3) 05/02/2015 3:12 PM CDT Body Mass Index 27.28 05/02/2015 3:12 PM CDT Plan of Treatment Health Maintenance Due Date Last Done Comments DTAP/TDAP/TD VACCINES (1 - Tdap) 1977 PNEUMOCOCCAL VACCINE 50+ YEARS (1 of 2 - PCV) 04/30/19 77 BREAST CANCER SCREENING 1998 FIT-DNA Q 3 years 2003 FIT/FOBT Q 1 year 2003 Flex Sig/CT Colonography Q 5 years 2003 ZOSTER VACCINE (1 of 2) 2008 COLORECTAL SCREENING 07/28/2019 07/28/2009 Colorectal Cancer Screening 07/28/2019 OSTEOPOROSIS SCREENING 2023 INFLUENZA VACCINE (#1) 2025 RSV VACCINE (60+ or ) (1 - 1-dose 75+ series) 2033 Insurance [facility] BLUE ACCESS/TRUE BLUE PPO
[2025-02-18 07:59] LABS: Add Urine Microscopic? YES; Appearance Urine Clear (Clear); Glucose Urine UA Negative (Negative); Leukocyte Esterase Ur 2+ (Negative); Nitrate Urine Negative (Negative); Specific Grav Ur >= 1.030 (1.010-1.020)
[2025-02-18 08:00] LABS: Hematocrit 49.5 % (35.0-42.0); Hemoglobin 15.9 g/dL (11.7-13.8); Immature Granulocyte Percent A 0.3 % (0.0-0.0); Lymphocytes Absolute Auto 1.76 K/mm3 (1.10-4.50); Mean Corpuscular HGB Conc 32.1 g/dL (32-36); Mean Corpuscular Hemoglobin 28.1 pg (27.0-31.0); Mean Corpuscular Volume 87.6 fL (78.0-102.0); Nucleated Red Blood Cells Absolute Auto 0.00 K/mm3 (0.00-0.00); Nucleated Red Blood Cells Perc 0.0 % (0-0.0); Platelet Count Result 339 K/mm3 (150-420); Red Blood Count 5.65 M/mm3 (4.20-5.40); White Blood Count 6.7 K/mm3 (4.8-10.8)
[2025-02-18 08:20] LABS: Alanine Aminotransferase 27 U/L (6-35); Albumin Level 4.5 g/dL (3.5-5.1); Alkaline Phosphatase 112 U/L (38-126); Anion Gap 9 mmol/L (4-12); Aspartate Amino Transferase 24 U/L (14-36); Bilirubin,Total 0.5 mg/dL (0.2-1.3); Blood Urea Nitrogen 21 mg/dL (7-17); Calcium 9.9 mg/dL (8.4-10.2); Carbon Dioxide 28 mmol/L (22-30); Chloride 103 mmol/L (98-107); Estimated Glomerular Filt Rate 60; Glucose 98 mg/dL (65-110); HDL Direct 60 mg/dL; Osmolality Calculated 293 mOsm/kg (285-295); Potassium 5.8 mmol/L (3.4-5.0); Sodium 140 mmol/L (137-145); Total Protein 7.7 g/dL (6.3-8.2)
[2025-02-18 08:27] LABS: MALB Creatinine Ratio 7.4 mg/g (0-30)
[2025-02-18 08:35] LABS: Cholesterol 242 mg/dL (0-200); Triglycerides 152 mg/dL (<150)
[2025-02-18 08:50] LABS: Thyroid Stimulating Hormone 4.390 uIU/mL (0.465-4.680)
== END 2025-02-18 07:44 | disposition home or self-care (01) ==
LOC: CHSLAB 07:45
PROVIDERS: PCP Family Medicine; Visit Provider Family Medicine
DX: I10 Essential (primary) hypertension (principal)
CPT/HCPCS: 36415; 80053; 80061; 81001; 82043; 84443; 85025

== ENCOUNTER 2025-02-21 12:01 | Outpatient (CLI) | payer MEDICARE, OTHER, SELFPAY ==
[2025-02-21 12:58] LABS: Anion Gap 3 mmol/L (4-12); Blood Urea Nitrogen 16 mg/dL (7-17); Calcium 9.5 mg/dL (8.4-10.2); Carbon Dioxide 31 mmol/L (22-30); Chloride 104 mmol/L (98-107); Estimated Glomerular Filt Rate > 60; Glucose 96 mg/dL (65-110); Osmolality Calculated 287 mOsm/kg (285-295); Potassium 5.0 mmol/L (3.4-5.0); Sodium 138 mmol/L (137-145)
== END 2025-02-21 12:02 | disposition home or self-care (01) ==
LOC: CHSLAB 12:03
PROVIDERS: PCP Family Medicine; Visit Provider Family Medicine
DX: E87.5 Hyperkalemia (principal)
CPT/HCPCS: 36415; 80048

== ENCOUNTER 2025-06-21 13:22 | Outpatient (CLI) | payer MEDICARE, OTHER, SELFPAY ==
[2025-06-21 14:13] LABS: Alanine Aminotransferase 30 U/L (6-35); Albumin Level 4.6 g/dL (3.5-5.1); Alkaline Phosphatase 115 U/L (38-126); Anion Gap 13 mmol/L (4-12); Aspartate Amino Transferase 25 U/L (14-36); Bilirubin,Total 0.4 mg/dL (0.2-1.3); Blood Urea Nitrogen 18 mg/dL (7-17); Calcium 9.8 mg/dL (8.4-10.2); Carbon Dioxide 26 mmol/L (22-30); Chloride 104 mmol/L (98-107); Estimated Glomerular Filt Rate > 60; Glucose 93 mg/dL (65-110); Osmolality Calculated 297 mOsm/kg (285-295); Potassium 4.0 mmol/L (3.4-5.0); Sodium 143 mmol/L (137-145); Total Protein 7.8 g/dL (6.3-8.2)
[2025-06-21 14:14] LABS: Hematocrit 46.5 % (35.0-42.0); Hemoglobin 15.2 g/dL (11.7-13.8); Immature Granulocyte Percent A 0.6 % (0.0-0.0); Lymphocytes Absolute Auto 1.57 K/mm3 (1.10-4.50); Mean Corpuscular HGB Conc 32.7 g/dL (32-36); Mean Corpuscular Hemoglobin 28.4 pg (27.0-31.0); Mean Corpuscular Volume 86.9 fL (78.0-102.0); Nucleated Red Blood Cells Absolute Auto 0.00 K/mm3 (0.00-0.00); Nucleated Red Blood Cells Perc 0.0 % (0-0.0); Platelet Count Result 321 K/mm3 (150-420); Red Blood Count 5.35 M/mm3 (4.20-5.40); White Blood Count 6.2 K/mm3 (4.8-10.8)
--- OUTSIDE RECORDS SUMMARY | 2025-06-21 15:01 | XMS_ITS | Clinical Summary ---
Author Organization [facility] Address [address] [place] [address] Care Team Providers Care Time Buyer Name Role Phone Unavailable Primary Care Provider [...] (1 - 1-dose 75+ series) [address] [place] [address] [address] BLUE ACCESS/TRUE BLUE PPO
--- OUTSIDE RECORDS SUMMARY | 2025-06-21 15:01 | XMS_ITS | Clinical Summary ---
Author Organization [facility] [employer] Address [address] [place] [address] Care Team Providers Care Associate Curator Name Role Phone Payam Mello MD Primary Care Provider [phone] Source Comments [facility] [employer],non-owned Affiliates and Associated Physician Practices is amultiple site organization consisting of ambulatory clinics and hospital sitesin [place], [place], [place] and [place]. This disclosure is being madepursuant to the Care Everywhere program and may not contain all information available regarding this patient. Last updated 18.[facility] [employer] Allergies No known active allergies Medications * [...] Comments Blood Pressure 143/90 07/03/2015 12:01 PM NATIONAL INVESTIGATIVE PRODUCER Pulse 99 07/03/2015 12:01 PM NATIONAL INVESTIGATIVE PRODUCER Temperature 36.8 C (98.2 F) 07/03/2015 12:01 PM NATIONAL INVESTIGATIVE PRODUCER Respiratory Rate 16 07/03/2015 12:01 PM NATIONAL INVESTIGATIVE PRODUCER Oxygen Saturation 100% 07/03/2015 12:01 PM NATIONAL INVESTIGATIVE PRODUCER Inhaled Oxygen Concentration - - Weight 70.8 kg (156 lb) 07/03/2015 12:01 PM NATIONAL INVESTIGATIVE PRODUCER Height 160 cm (5' 3) 07/03/2015 12:01 PM NATIONAL INVESTIGATIVE PRODUCER Body Mass Index 27.63 07/03/2015 12:01 PM NATIONAL INVESTIGATIVE PRODUCER Plan of Treatment Health Maintenance Due Date [...] 2008 ZOSTER VACCINE (1 of 2) 2008 DEPRESSION SCREENING 07/28/2024 COVID-19 VACCINE (1 - 2024-2 6 season) 2025 INFLUENZA VACCINE (#1) 2025 Respiratory Syncytial Virus [...] to complete this topic Insurance Care Teams Associate Curator Relationship Specialty Start Date End Date Payam Mello MD [address] [place] [address] PCP - General Family Medicine 05/24/15
--- OUTSIDE RECORDS SUMMARY | 2025-06-21 15:01 | XMS_ITS | Clinical Summary ---
Author Organization [facility] Address [address] [place] [address] Care Team Providers Care Electrolysist Name Role Phone Payam Mello MD Primary Care Provider [phone] Wolf Caballero MD Unavailable Allergies Active Allergy Reactions Criticality Noted Date Comments Shellfish Protein-Containing Drug Products Unknown 10/27/2015 Tape Rash Low 11/28/2023 Medications pantoprazole EC [...] from your doctor or pharmacy? Never 12/03/2023 [facility] Utilities Answer Date Recorded In the past 12 months has e [employer], gas, oil, or water [employer] threatened to shut off services in your [...] No 12/03/2023 Social Connection and Isolation Panel Answer Date Recorded In a typical week, how many times do you talk on the phone with family, friends, or neighbors? Never 12/03/2023 How often do you get together with friends or re latives? Never 12/03/2023 How often do you attend voodoo or amish serv ices? Never 12/03/2023 Do you belong to any clubs o r organizations such as voodoo groups, unions, fraternal or athletic groups, or [...] and heating? Not hard at all 12/03/2023 [facility] [place] of Occupat ional Health - Occupational Stress [...] any time in the past 12 m [facility], were you homeless or living in a chcf (including now)? No 12/03/2023 Comments No Sex [...] Wellness Visit 2023 Dexa Scan (General) 2023 PHQ-2 (Physician [place]) 07/28/2024 COVID-19 Vaccine (1 - 2024-2 6 season) 2025 Influenza Adult (#1) 2025 1958 DTaP, Tdap and Td Vaccines ( 2 - Td or Tdap) 01/27/2030 01/28/2020 RSV Immunization or 60+ Years (1 - 1-dose 75+ series) 2033 Colorectal Cancer Screening Colonoscopy (10 Years) 12/01/2033 12/02/2023, Hepatitis A Vaccines Aged Out No long er eligible based on patient's age to complete this topic Meningococcal B Vaccine Aged Out No l onger eligible based on patient's age to complete this topic Meningococcal Vaccine Aged Out No cyrus quoc eligible based on patient's age to complete this topic RSV Immunizations Under 20 Months Aged Out No longer eligible b ased on patient's age to complete this topic Medical Devices Implanted Type Area Twill Cutter Device Identifier Shelf Expiration Date Model / Serial / Lot Mesh Symbotex [id number] - [id number] Implanted:Qty: 1 on 04/22/2024 by Cornelius James MD at [facility] Mesh N/A: Abdomen [employer] [id number] 08/27/2028 [id number] / / [id number] Procedures Procedure Name Priority Date/Time Associated Diagnosis Comments COLONOSCOPY Routine CHAUFFEUR from Last 3 Months or Most Recently Relevant to Health Maintenance Results * Colonoscopy ( CHAUFFEUR) Narrative [employer] TO EPIC CONVERSION - CHAUFFEUR Documented hx of procedure Procedure Note Halina Elliott MD - 05/31/2018 Documented hx of procedure us Generic Conversion Md ELLIOTT GI PROCEDURE ORDERABLES Final Result [employer] TO EPIC CONVERSION from Last 3 Months or Most Recently Relevant to Health Maintenance Insurance MEDICARE [facility] Advance Directives * Full Code (Latest Code Status on File) Date Activated Date Inactivated Comments 12/03/2023 3:11 PM 12/06/2023 2:01 PM Care Teams Electrolysist Relationship Specialty Start Date End Date Payam Mello MD [address] [place] [address] PCP - General FAMILY PRACTICE 10/11/22 [place] [address] [place] [address] Consulting Physician GASTROENTEROLOGY 12/03/23
== END 2025-06-21 13:23 | disposition home or self-care (01) ==
PROVIDERS: PCP Family Medicine; Visit Provider Family Medicine
DX: I10 Essential (primary) hypertension (principal)
CPT/HCPCS: 36415; 80053; 85025